=== PATIENT | female | born 1995 | race Caucasian/White ===

== ENCOUNTER 2017-10-28 10:24 | Outpatient (CLI) | payer MEDICAID, SELFPAY ==
[2017-10-28 10:44] VITALS: BP 165/99; PULSE 113; RESP 17; TEMP 36.9; O2SAT 98; BMI 43.9
[2017-10-28 11:05] VITALS: BP 165/99; PULSE 106; RESP 16; TEMP 36.9; O2SAT 98
[2017-10-28 11:25] LABS: Microscopic, Urine URINE MICROSCOPIC (MICROSCOPIC)
[2017-10-28 11:27] LABS: Appearance,Urine SL CLOUDY (Clear); Bilirubin,Urine Negative (Negative); Blood, Urine Negative (Negative); Color,Urine YELLOW (Yellow); Glucose,Urine (UA) Negative (Negative); Ketones,Urine Negative (Negative); Leukocyte Esterase,Urine Negative (Negative); Nitrate,Urine Negative (Negative); Protein,Urine 2+ (Negative); Specific Gravity, Urine >= 1.030 (1.005-1.030); Urobilinogen,Urine 0.2 EU/dl (0.2)
[2017-10-28 11:42] LABS: Bacteria,Urine 3+ /lpf; Calcium Oxalate Crystals,Urine 1+ /lpf; Mucus,Urine Trace /lpf; RBC,Urine Occasional #/hpf (0-3)
[2017-10-28 12:02] LABS: Basophils % 0.2 % (0.1-2.0); Eosinophils # 0.1 K/mm3 (0.0-0.4); Eosinophils % 0.9 % (0.1-12.0); Hematocrit 27.1 % (37.0-47.0); Hemoglobin 8.9 g/dL (12.2-16.2); Lymphocytes # 1.4 K/mm3 (0.7-4.5); Lymphocytes % 14.7 K/mm3 (10-50); Mean Corpuscular HGB Conc 32.9 g/dL (31.8-35.4); Mean Corpuscular Hemoglobin 25.7 pg (27.0-31.2); Mean Corpuscular Volume 78.2 fl (81-99); Mean Platelet Volume 11.4 fl (7.4-10.4); Monocytes # 0.6 K/mm3 (0.1-1.0); Monocytes % 5.7 % (1.7-9.3); Neutrophils # 7.6 K/mm3 (1.8-7.8); Neutrophils % 78.6 % (37.0-80.0); Platelet Count 140 K/mm3 (142-424); Red Blood Count 3.47 M/mm3 (4.20-5.40); Red Cell Distribution Width 15.6 % (11.5-17.5); White Blood Count 9.6 K/mm3 (4.8-10.8)
[2017-10-28 12:08] LABS: Alanine Aminotransferase 13 U/L (12-78); Anion Gap 12.9 mEq/L (5-15); Aspartate Amino Transferase 13 U/L (15-37); Blood Urea Nitrogen 8 mg/dL (7-18); Carbon Dioxide 22 mmol/L (21.0-32.0); Chloride 108 mmol/L (98-107); Creatinine Clearance Estimated 191 mL/min (0-300); Creatinine,Serum 0.47 mg/dL (0.55-1.02); Estimated Glomerular Filt Rate 167 ml/min (>60); GFR (African American) 202 ML/MIN (>60); Glucose 82 mg/dL (74-106); Potassium 3.9 mmoL/L (3.5-5.1); Sodium 139 mmol/L (136-145); Uric Acid 4.7 mg/dL (2.6-7.2)
--- NOTE | 2017-10-28 12:21 | PC.NURSE ---
Called Dr. Johnson, reported lab findinsgs Uric acid, plts, OK to discharge to home , start 24 hour urine , keep thursday f/u apt with Dr. King
[2017-10-28 12:28] LABS: D-Dimer 1700 (0-400)
[2017-10-28 12:49] LABS: Activated Partial Thrombo Time 25.5 seconds (23.6-34.0); Fibrinogen 374 mg/dL (204-500); INR 0.94 (0.9-1.1); Prothrombin Time 10.1 seconds (9.4-11.8)
== END 2017-10-28 12:45 | disposition home or self-care (01) ==
LOC: OBOUT 10:30 → OB 10:32
PROVIDERS: PCP Family Medicine; Visit Provider Nurse Practitioner Obstetrics & Gynecology
DX: O26.93 Pregnancy related conditions, unspecified, third trimester (principal); Z3A.34 34 weeks gestation of pregnancy; R51 Headache; Z34.90 Encounter for supervision of normal pregnancy, unspecified, unspecified trimester
CPT/HCPCS: 59025; 80048; 81001; 84450; 84460; 84550; 85025; 85378; 85384; 85610; 85730; 87086

== ENCOUNTER → 2017-10-29 17:28 | Outpatient (REF) | payer MEDICAID, SELFPAY ==
[2017-10-29 20:04] LABS: Total Protein,Urine Random 99.9 mg/dL (0.0-11.9)
[2017-10-29 21:35] LABS: Total Protein 24 Hour,Urine 949 mg/24 hr (40-90); Total Volume,Urine 950 mL (600-1600)
== END ==
LOC: LAB 17:28
PROVIDERS: Visit Provider Nurse Practitioner Obstetrics & Gynecology
DX: Z34.90 Encounter for supervision of normal pregnancy, unspecified, unspecified trimester (principal)
CPT/HCPCS: 84155

== ENCOUNTER 2017-10-30 11:16 | Observation (INO) | payer MEDICAID, SELFPAY ==
--- NOTE | 2017-10-30 | US_ITS ---
US OB biophysical profile, US SD Ratio umbilical artery, US OB biophysical profile, US SD Ratio umbilical artery: Indication: -induced hypertension ITS.REASON: PIH ORDERING PHYSICIAN: Toy King MD PATIENT AGE: 21 years FINDINGS: There was some technical issues in recording the data of the twin gestation. There is a twin gestation which is monochorionic monoamniotic. The placenta is anterior fundal and grade 2. The amniotic fluid index is 10. Visibly, the amniotic fluid volume appears low . Fetus A is cephalic and has a heart rate of 128 BPM. Average ultrasound age is 34 weeks 6 days of fetus a. Estimated due date is 12/05/2017. BPD 35 weeks 1 day, OFD 33 weeks 4 days, HC 33 weeks 6 days, abdominal circumference 34 weeks 4 days, FL 35 weeks 3 days. All parameters correlate. Estimated weight of fetus a is 2504 g which is 50th percentile. Biophysical profile parameters are not documented on the images due to technical difficulties but is reported as 8 of 8. The SD ratio pedis is 2.7 with a resistive index of 0.63. Fetus B is cephalic. heart tones are present with an FHR of 156 BPM. Average ultrasound age of fetus B is 33 weeks 3 days with estimated due date of 12/15/2017. Estimated weight is 2150 g is 14th percentile. BPD 33 weeks 2 days, OFD 35 weeks 0 days, HC 33 weeks 6 days, before meals 33 weeks 2 days, FL 33 weeks 2 days. All parameters correlate. SD ratio of fetus B is 2.3 with a resistive index of 0.56 biophysical profile fetus B is 8 of 8. IMPRESSION: Live twin gestation monochorionic and monoamniotic with anterior placenta grade 2. Amniotic fluid volume visibly appears low with an HAMILTON of 10. Average ultrasound age of fetus a is 34 weeks 6 days and average ultrasound fetus B is 33 weeks 3 days. Both fetuses are in cephalic position. Biophysical profile fetus a is not documented due to technical difficulties but is reported by technologist at 8 of 8. Biophysical profile fetus B is 8 of 8. Significant findings called to Dr. King on 10/30/2017 4:07 PM.
[2017-10-30 11:20] VITALS: BP 161/104; PULSE 95; RESP 20; TEMP 36.7; O2SAT 95; BMI 45.2
[2017-10-30 12:15] LABS: Basophils % 0.2 % (0.1-2.0); Eosinophils # 0.2 K/mm3 (0.0-0.4); Eosinophils % 1.5 % (0.1-12.0); Hemoglobin 9.2 g/dL (12.2-16.2); Lymphocytes % 17.3 K/mm3 (10-50); Mean Corpuscular HGB Conc 32.8 g/dL (31.8-35.4); Mean Corpuscular Hemoglobin 25.4 pg (27.0-31.2); Mean Corpuscular Volume 77.4 fl (81-99); Mean Platelet Volume 10.9 fl (7.4-10.4); Monocytes # 0.6 K/mm3 (0.1-1.0); Monocytes % 5.3 % (1.7-9.3); Neutrophils # 8.8 K/mm3 (1.8-7.8); Neutrophils % 75.6 % (37.0-80.0); Platelet Count 156 K/mm3 (142-424); Red Blood Count 3.61 M/mm3 (4.20-5.40); Red Cell Distribution Width 15.5 % (11.5-17.5); White Blood Count 11.6 K/mm3 (4.8-10.8)
[2017-10-30 12:21] LABS: Alanine Aminotransferase 13 U/L (12-78); Anion Gap 13.2 mEq/L (5-15); Aspartate Amino Transferase 14 U/L (15-37); Blood Urea Nitrogen 8 mg/dL (7-18); Carbon Dioxide 22 mmol/L (21.0-32.0); Chloride 108 mmol/L (98-107); Creatinine Clearance Estimated 176 mL/min (0-300); Creatinine,Serum 0.51 mg/dL (0.55-1.02); Estimated Glomerular Filt Rate 152 ml/min (>60); GFR (African American) 184 ML/MIN (>60); Glucose 86 mg/dL (74-106); Potassium 4.2 mmoL/L (3.5-5.1); Sodium 139 mmol/L (136-145)
[2017-10-30 12:44] LABS: D-Dimer 1430 (0-400)
[2017-10-30 12:53] LABS: Activated Partial Thrombo Time 25.2 seconds (23.6-34.0); Fibrinogen 429 mg/dL (204-500); INR 0.91 (0.9-1.1); Prothrombin Time 9.8 seconds (9.4-11.8)
[2017-10-30 14:20] LABS: Microscopic, Urine URINE MICROSCOPIC (MICROSCOPIC)
[2017-10-30 14:25] LABS: Appearance,Urine CLOUDY (Clear); Blood, Urine Negative (Negative); Color,Urine DK YELLOW (Yellow); Glucose,Urine (UA) Negative (Negative); Ketones,Urine TRACE (Negative); Leukocyte Esterase,Urine TRACE (Negative); Nitrate,Urine Negative (Negative); Protein,Urine 2+ (Negative); Specific Gravity, Urine >= 1.030 (1.005-1.030); Urobilinogen,Urine 0.2 EU/dl (0.2)
[2017-10-30 15:25] LABS: Bilirubin,Urine 1+ (Negative)
[2017-10-30 15:36] LABS: RBC,Urine Occasional #/hpf (0-3)
[2017-10-30 15:37] LABS: Amorphous Sediment,Urine 3+ /lpf; Bacteria,Urine 3+ /lpf
--- NOTE | 2017-10-30 16:23 | P.PN_ITS ---
Internal Medicine - PN: Subj *Date: 10/30/17 *Time: 16:19 (See if this works this 21-year-old primigravida white female was admitted earlier today at 34-2/7 weeks with mono/mono twins, breech/vertex, and signs and symptoms of preeclampsia with a blood pressure 162/102 and hyperreflexia. She also exhibited increased proteinuria and 4+ edema. She was treated with magnesium sulfate. Her current blood pressure is 143/99. She is not rajiv. However, her amniotic fluid index is quite low based on a biophysical profile, and the decision was made to transfer the patient to . He has been accepted by Dr. Pratima Link in transfer. She has received a course of steroids, approximately 2 weeks ago, and had a group B strep culture done just morning.) Exam Vital signs and Labs for Last 24 Hours: Temp Pulse Resp BP Pulse Ox 98.0 F 95 H 20 161/104 95 10/30/17 11:20 10/30/17 11:20 10/30/17 11:20 10/30/17 11:20 10/30/17 11:20 Laboratory Results - last 24 hr 10/30/17 11:55: WBC 11.6 H, RBC 3.61 L, Hgb 9.2 L, Hct 28.0 L, MCV 77.4 L, MCH 25.4 L, MCHC 32.8, RDW 15.5, Plt Count 156, MPV 10.9 H, Neut % (Auto) 75.6, Lymph % (Auto) 17.3, Hinds % (Auto) 5.3, Eos % (Auto) 1.5, Baso % (Auto) 0.2, Neut # (Auto) 8.8 H, Lymph # (Auto) 2.0, Hinds # (Auto) 0.6, Eos # (Auto) 0.2, Baso # (Auto) 0.0 10/30/17 11:55: PT 9.8, INR 0.91, APTT 25.2, Fibrinogen 429, D-Dimer 1430 H* 10/30/17 11:55: Sodium 139, Potassium 4.2, Chloride 108 H, Carbon Dioxide 22, Anion Gap 13.2, BUN 8, Creatinine 0.51 L, Estimated Creat Clear 176, Estimated GFR 152, Est GFR ( Amer) 184, Glucose 86, Uric Acid 5.0, AST 14 L, ALT 13 10/30/17 11:55: Urine Color Dk yellow, Urine Appearance Cloudy, Urine pH 6.0, Ur Specific Elsa >= 1.030, Urine Protein 2+, Urine Glucose (UA) Negative, Urine Ketones Trace, Urine Blood Negative, Urine Nitrate Negative, Urine Bilirubin 1+ A, Urine Urobilinogen 0.2, Ur Leukocyte Esterase Trace, Urine RBC Occasional, Urine WBC 5-10, Ur Squamous Epith Cells 5-10, Amorphous Sediment 3+ , Urine Bacteria 3+ 10/30/17 11:55: Blood Type A Positive, Antibody Screen Negative I & O for Last 24 hours: Intake & Output 10/28/17 10/29/17 10/30/17 10/31/17 11:59 11:59 11:59 11:59 Weight 297 lb 6 oz
--- NOTE | 2018-03-04 13:25 | HMH.DCSUM ---
General - General Admission date:: 10/30/17 Discharge date: 10/30/17 Hospital Course Hospital Course: This 22-year-old white female at 34+ weeks with known monochorionic monoamniotic twins was seen in labor and delivery for a biophysical profile which was felt to be substandard. She was then transferred to [facility] after discussion with Dr. Pratima Link, Chief of OB there. Objective Vital signs: Temp Pulse Resp BP Pulse Ox 98.0 F 95 H 20 161/104 95 10/30/17 11:20 10/30/17 11:20 10/30/17 11:20 10/30/17 11:20 10/30/17 11:20 Discharge Plan - Patient Discharge Instructions Additional Instructions: npo Patient Instructions: Pre-eclampsia and -induced Hypertension (Alternative Therapy) Forms: Transfer Record - Follow up Plan Disposition: Xfer Short-Term Hosp Home Medications: Home Medications Medication Instructions Recorded Confirmed Type albuterol sulfate HFA 90 1 puff INHALATION Q6H PRN 10/23/17 10/30/17 History mcg/actuation aerosol inhaler betamethasone sodium phosphate 3 1 tab PO NEEDED PRN 10/23/17 History mg/mL base (4 mg/mL) injection soln ferrous sulfate 325 mg (65 mg 325 mg PO TID tab 10/23/17 10/30/17 History iron) tablet ondansetron HCl 4 mg tablet 4 mg PO Q4H PRN 10/23/17 10/30/17 History 1 tab PO QDAY 10/23/17 10/30/17 History vitamin,calcium,khxfymhl-zqdn-tkjoa acid tablet Prescriptions/Medication Reconciliation: Continue ondansetron HCl 4 mg tablet 4 mg PO Q4H PRN PRN Reason: Nausea And Vomiting albuterol sulfate HFA 90 mcg/actuation aerosol inhaler 1 puff INHALATION Q6H PRN PRN Reason: ASTHMA/SHORTNESS OF BREATH vitamin,calcium,zjdqxass-utcl-zuxgu acid tablet 1 tab PO QDAY ferrous sulfate 325 mg (65 mg iron) tablet 325 mg PO TID tab No Action betamethasone sodium phosphate 3 mg/mL base (4 mg/mL) injection soln 1 tab PO NEEDED PRN PRN Reason: other
--- NOTE | 2018-03-04 13:28 | P.DS_ITS ---
General - General Admission date:: 10/30/17 Discharge date: 10/30/17 Hospital Course Hospital Course: This 22-year-old white female at 34+ weeks with known monochorionic monoamniotic twins was seen in labor and delivery for a biophysical profile which was felt to be substandard. She was then transferred to [facility] after discussion with Dr. Pratima Link, Chief of OB there. Objective Vital signs: Temp Pulse Resp BP Pulse Ox 98.0 F 95 H 20 161/104 95 10/30/17 11:20 10/30/17 11:20 10/30/17 11:20 10/30/17 11:20 10/30/17 11:20 Discharge Plan - Patient Discharge Instructions Additional Instructions: npo Patient Instructions: Pre-eclampsia and -induced Hypertension ( Alternative Therapy) Forms: Transfer Record - Follow up Plan Disposition: Xfer Short-Term Hosp Home Medications: Home Medications Medication Instructions Recorded Confirmed Type albuterol sulfate HFA 90 1 puff INHALATION Q6H PRN 10/23/17 10/30/17 History mcg/actuation aerosol inhaler betamethasone sodium phosphate 3 1 tab PO NEEDED PRN 10/23/17 History mg/mL base (4 mg/mL) injection soln ferrous sulfate 325 mg (65 mg 325 mg PO TID tab 10/23/17 10/30/17 History iron) tablet ondansetron HCl 4 mg tablet 4 mg PO Q4H PRN 10/23/17 10/30/17 History 1 tab PO QDAY 10/23/17 10/30/17 History vitamin,calcium,yvhubpus-ckow-rlydw acid tablet Prescriptions/Medication Reconciliation: Continue ondansetron HCl 4 mg tablet 4 mg PO Q4H PRN PRN Reason: Nausea And Vomiting albuterol sulfate HFA 90 mcg/actuation aerosol inhaler 1 puff INHALATION Q6H PRN PRN Reason: ASTHMA/SHORTNESS OF BREATH vitamin,calcium,aptxwpwv-ezbi-zhmco acid tablet 1 tab PO QDAY ferrous sulfate 325 mg (65 mg iron) tablet 325 mg PO TID tab No Action betamethasone sodium phosphate 3 mg/mL base (4 mg/mL) injection soln 1 tab PO NEEDED PRN PRN Reason: other
== END 2017-10-30 22:00 | disposition short-term general hospital (02) ==
PROVIDERS: Admitting Provider Obstetrics & Gynecology; PCP Family Medicine; Visit Provider Obstetrics & Gynecology
DX: O16.3 Unspecified maternal hypertension, third trimester (principal); O30.013 Twin pregnancy, monochorionic/monoamniotic, third trimester; Z3A.34 34 weeks gestation of pregnancy
CPT/HCPCS: 59025; 76801; 76802; 76819; 76820; 80048; 81001; 84450; 84460; 84550; 85025; 85378; 85384; 85610; 85730; 86850; 87086; G0378

== ENCOUNTER → 2017-10-30 13:45 | Outpatient (REF) | payer MEDICAID, SELFPAY | LOC: LAB 13:45 | PROVIDERS: Visit Provider Obstetrics & Gynecology | DX: Z34.90 Encounter for supervision of normal pregnancy, unspecified, unspecified trimester (principal) | CPT/HCPCS: 86403 ==

== ENCOUNTER → 2018-06-22 08:29 | Outpatient (CLI) | payer MEDICAID, SELFPAY ==
--- NOTE | 2018-06-22 08:32 | CT_ITS ---
Are CT abdomen pelvis wo/w con CLINICAL INDICATION: Right lower quadrant pain close to incision, possible hernia ITS.REASON: incisional pain ORDERING PHYSICIAN: Toy King MD PATIENT AGE: 22 years COMPARISON: 06/03/2016 TECHNIQUE: Axial images obtained without and with contrast with sagittal and coronal reformats. All CT scans at the facility use one or more dose reduction, viz: automated exposure control, ma/kV adjustment per patient size (including targeted exams where dose is matched to indication, i.e. head), or iterative reconstruction technique. PROCEDURE: Oral Contrast: None IV Contrast: 75 mL [id number]. FINDINGS: Lung bases are clear. A vague isodensity is once again noted involving the right hepatic lobe posteriorly at 10 mm not significantly changed and may represent small hemangioma. Remaining liver is unremarkable. No radio opaque gallstones. The spleen, adrenal glands, pancreas, and kidneys have an unremarkable appearance. No renal or ureteral calculi. No hydronephrosis. The appendix is retrocecal and is upper limits of normal in size and 6 to 7 mm similar to the previous exam. No convincing evidence of appendicitis. There is a small amount of fluid in the pelvis nonspecific. No intestinal obstruction or free air. No focal inflammatory change or pelvic mass evident. There is a tiny umbilical hernia containing fat. No other abdominal wall hernias are evident. There is minimal stranding of the abdomen in the intra-abdominal wall which may be due to patient's scar. No evidence of hernia at this region. There is acute anterior angulation of the tip of the coccyx similar to the previous exam and may be related to old injury. No other bony anomalies evident. IMPRESSION: 1. No acute abdominal or pelvic findings. 2. No change isodensity of the right hepatic lobe which may represent small hemangioma. 3. There is a tiny umbilical hernia containing fat. No other abdominal wall hernias are evident.
== END ==
PROVIDERS: PCP Family Medicine; Visit Provider Obstetrics & Gynecology
DX: L76.82 Other postprocedural complications of skin and subcutaneous tissue (principal)
CPT/HCPCS: 74170; Q9967

== ENCOUNTER → 2019-02-24 07:55 | Outpatient (POV) | payer MEDICAID, SELFPAY | PROVIDERS: PCP Family Medicine; Visit Provider Dentist | DX: Z00.00 Encounter for general adult medical examination without abnormal findings (principal) ==

== ENCOUNTER → 2020-11-03 10:25 | Outpatient (CLI) | payer OTHER, SELFPAY ==
[2020-11-03 12:43] LABS: Glucose 1 Hour 141 mg/dL (74-100); Glucose,Fasting 129 mg/dl (74-100)
== END ==
PROVIDERS: Visit Provider Obstetrics & Gynecology
DX: Z34.90 Encounter for supervision of normal pregnancy, unspecified, unspecified trimester (principal)
CPT/HCPCS: 36415; 82951

== ENCOUNTER → 2020-11-16 09:37 | Outpatient (CLI) | payer OTHER, SELFPAY | PROVIDERS: Visit Provider Obstetrics & Gynecology | DX: Z34.90 Encounter for supervision of normal pregnancy, unspecified, unspecified trimester (principal) | CPT/HCPCS: 36415 ==

== ENCOUNTER → 2021-01-17 17:10 | Outpatient (CLI) | payer OTHER, SELFPAY | PROVIDERS: Visit Provider Obstetrics & Gynecology | DX: Z34.90 Encounter for supervision of normal pregnancy, unspecified, unspecified trimester (principal) | CPT/HCPCS: 86403 ==

== ENCOUNTER 2021-01-20 20:42 | Outpatient (CLI) | payer OTHER, SELFPAY ==
[2021-01-20 20:54] VITALS: BMI 43.2
[2021-01-20 20:58] VITALS: BP 131/91; PULSE 114; RESP 18; TEMP 36.8; O2SAT 98; BMI 43.2
[2021-01-20 21:09] LABS: Microscopic, Urine URINE MICROSCOPIC (MICROSCOPIC)
[2021-01-20 21:10] LABS: Appearance,Urine CLOUDY (Clear); Blood, Urine Negative (Negative); Color,Urine YELLOW (Yellow); Glucose,Urine (UA) Negative (Negative); Ketones,Urine TRACE (Negative); Leukocyte Esterase,Urine TRACE (Negative); Nitrate,Urine Negative (Negative); Protein,Urine TRACE (Negative); Specific Gravity, Urine >= 1.030 (1.005-1.030)
[2021-01-20 21:21] LABS: Barbiturates Screen,Urine Negative ng/ml (<200)
[2021-01-20 21:22] LABS: Amphetamine/Metha Screen,Urine Negative ng/ml (<1000); Benzodiazepines Screen,Urine Negative ng/ml (<200)
[2021-01-20 21:23] LABS: Cannabinoid Screen,Urine Negative ng/ml (<50)
[2021-01-20 21:24] LABS: Cocaine Screen,Urine Negative ng/ml (<300); Methadone Screen,Urine Negative ng/ml (<300)
[2021-01-20 21:25] LABS: Opiate Screen,Urine Negative ng/ml (<300)
[2021-01-20 21:26] LABS: Phencyclidine Screen,Urine Negative ng/ml (<25)
[2021-01-20 21:27] LABS: Bilirubin,Urine 1+ (Negative)
[2021-01-20 21:28] LABS: Amorphous Sediment,Urine Trace /lpf; Mucus,Urine 2+ /lpf; Squamous Epithelial Cell,Urine 50-100 #/hpf (0-5)
== END 2021-01-20 22:00 | disposition home or self-care (01) ==
LOC: OBOUT 20:45 → OB 20:49
PROVIDERS: PCP Obstetrics & Gynecology; Visit Provider Nurse Practitioner Obstetrics & Gynecology
DX: O60.03 Preterm labor without delivery, third trimester (principal); Z3A.37 37 weeks gestation of pregnancy
CPT/HCPCS: 59025; 80305; 81001; 96360; 96365; G0463

== ENCOUNTER → 2021-01-27 16:07 | Outpatient (CLI) | payer OTHER, SELFPAY ==
[2021-01-27 16:49] LABS: Basophils % 0.1 % (0.1-2.0); Eosinophils % 0.4 % (0.1-12.0); Hematocrit 30.9 % (37.0-47.0); Hemoglobin 10.5 g/dL (12.2-16.2); Lymphocytes # 1.7 K/mm3 (0.7-4.5); Lymphocytes % 16.1 % (10-50); Mean Corpuscular HGB Conc 33.9 g/dL (31.8-35.4); Mean Corpuscular Hemoglobin 26.4 pg (27.0-31.2); Mean Corpuscular Volume 77.7 fl (81-99); Mean Platelet Volume 10.1 fl (7.4-10.4); Monocytes # 0.5 K/mm3 (0.1-1.0); Neutrophils # 8.5 K/mm3 (1.8-7.8); Neutrophils % 78.5 % (37.0-80.0); Platelet Count 212 K/mm3 (142-424); Red Blood Count 3.98 M/mm3 (4.20-5.40); Red Cell Distribution Width 15.1 % (11.5-17.5); White Blood Count 10.9 K/mm3 (4.8-10.8)
[2021-01-27 17:12] LABS: Blood Urea Nitrogen 9 mg/dl (7-17); Calcium 8.6 mg/dl (8.4-10.2); Carbon Dioxide 19 mmol/L (22.0-30.0); Chloride 109 mmol/L (98-107); Estimated Glomerular Filt Rate 194 ml/min (>60); GFR (African American) 235 ML/MIN (>60); Glucose 107 mg/dl (74-100); Sodium 135 mmol/L (136-145)
== END ==
PROVIDERS: PCP Obstetrics & Gynecology; Visit Provider Obstetrics & Gynecology
DX: Z34.90 Encounter for supervision of normal pregnancy, unspecified, unspecified trimester (principal)
CPT/HCPCS: 36415; 80048; 85025; 86850; U0003

== ENCOUNTER 2021-01-28 05:19 | Inpatient (IN) | payer OTHER, SELFPAY ==
--- NOTE | 2021-01-23 10:23 | SUR.PREOP ---
CAlled pt instructed her to come in Thursday for COVID swab
[2021-01-28] VITALS (20 sets, daily range): BP systolic 101–142; BP diastolic 59–83; PULSE 73–113; RESP 12–20; TEMP 36.2–37.2; O2SAT 95–100; BMI 43.2
[2021-01-28 05:43] LABS: Microscopic, Urine URINE MICROSCOPIC (MICROSCOPIC)
[2021-01-28 05:47] LABS: Appearance,Urine CLOUDY (Clear); Blood, Urine Negative (Negative); Color,Urine YELLOW (Yellow); Glucose,Urine (UA) Negative (Negative); Ketones,Urine Negative (Negative); Leukocyte Esterase,Urine 1+ (Negative); Nitrate,Urine Negative (Negative); Protein,Urine TRACE (Negative); Specific Gravity, Urine >= 1.030 (1.005-1.030)
[2021-01-28 05:49] LABS: Bilirubin,Urine Negative (Negative)
[2021-01-28 05:54] LABS: WBC,Urine 20-50 #/hpf (0-3)
[2021-01-28 05:55] LABS: Bacteria,Urine 3+ /lpf; Squamous Epithelial Cell,Urine TNTC #/hpf (0-5)
[2021-01-28 06:00] LABS: Barbiturates Screen,Urine Negative ng/ml (<200)
[2021-01-28 06:01] LABS: Amphetamine/Metha Screen,Urine Negative ng/ml (<1000); Benzodiazepines Screen,Urine Negative ng/ml (<200)
[2021-01-28 06:02] LABS: Cannabinoid Screen,Urine Negative ng/ml (<50); Cocaine Screen,Urine Negative ng/ml (<300)
[2021-01-28 06:03] LABS: Methadone Screen,Urine Negative ng/ml (<300)
[2021-01-28 06:04] LABS: Opiate Screen,Urine Negative ng/ml (<300); Phencyclidine Screen,Urine Negative ng/ml (<25)
--- NOTE | 2021-01-28 07:09 | P.PN_ITS ---
[facility] Anesthesia Checklist - Patient Identification Patient Identification: Arm Band - Structural Data Admitted From: Inpatient Planned Operative Procedure/s: Repeat C/S Consent for Planned Operative Procedure(s) Verified: Yes Verified Documents: Surgical Consent, History and Physical - NPO Status Verified Time NPO: 00:00 - Additional verifications Anesthesia Reactions: No - Airway Assessment C-Spine Mobility Assessed: Yes TMJ Mobility Assessed: Yes Dentition: Good Dentition - Neurological Assessment Level of Consciousness: Awake, Alert - Anesthesia Plan Anesthesia Risk discussed: Yes Anesthesia Plan: Verified ASA Class: II Anesthesia Type: Spinal [facility] History I have reviewed the patient's past medical history: Yes Medical History: Denies:: Cancer, Diabetes Mellitus Type 1, Diabetes Mellitus Type 2, MRSA *Have you ever received a pneumonia vaccine?: No *Have you received a flu vaccine this season?: Yes () Other Medical History: Reports: Other Anesthesia experience/problems:: nac Laterality Cases: Bilateral: Tonsillectomy Other Surgeries: Yes: Amputation: No Fractures: No - *Social History Smoking Status: Never smoker Alcohol Intake: never Substance Use Type: denies use *Occupational Status:: unemployed Housing: apartment Household Members: significant other *Travel in the last 8 weeks: None Family Hx:: No significant family history, Hypertension [employer]INE [employer] history: Non-contributory Para: 1
--- NOTE | 2021-01-28 07:38 | HMH.OBAPHP ---
OB - H&P: HPI Antepartum - History of Present Illness Chief complaint: elective repeat c section History of present illness: Admitted at 39 weeks for elective repeat CS and tubal ligation complicated by circumvellate placenta and mild anemia history of previous c section with twin declines TOLAC and desires permanent sterilization with tubal ligation [facility] History I have reviewed the patient's past medical history: Yes Medical History: Denies:: Cancer, Diabetes Mellitus Type 1, Diabetes Mellitus Type 2, MRSA *Have you ever received a pneumonia vaccine?: No *Have you received a flu vaccine this season?: Yes () Other Medical History: Reports: Other Anesthesia experience/problems:: nac Laterality Cases: Bilateral: Tonsillectomy Other Surgeries: Yes: No Previous Surgery, Amputation: No Fractures: No - *Social History Smoking Status: Never smoker Alcohol Intake: never Substance Use Type: denies use *Occupational Status:: unemployed Housing: apartment Household Members: significant other *Travel in the last 8 weeks: None Family Hx:: No significant family history, Hypertension [employer] history: Non-contributory Para: 1 Review of Systems - Review of Systems Review of systems:: pertinent systems reviewed and negative unless documented below - Constitutional Denies chills, Denies fever(s) - *Respiratory Denies cough - *Genitourinary Denies abnormal vaginal bleeding Meds Home Medications Medication Instructions Recorded Confirmed Type prenat.vits,ana,pst-vhnw-yzbht 1 tab PO DAILY 10/09/20 01/28/21 History Allergies Allergy/AdvReac Type Severity Reaction Status Date / Time No Known Allergies Allergy Verified 01/17/21 11:34 OB - H&P: Exam - Physical Exam Vital signs: Temp Pulse Resp BP Pulse Ox 98.2 F 97 H 18 142/76 H 98 01/28/21 06:04 01/28/21 06:04 01/28/21 06:04 01/28/21 06:04 01/28/21 06:04 - Constitutional no acute distress - Routine HEENT Exam Head: Present: normocephalic, atraumatic Eye: Absent: conjunctival icterus ENT: Present: mucous membranes moist - Routine Neck Exam Present: supple - Routine Chest/Breast/Axilla Exam Chest wall: Absent: tenderness - Routine Respiratory Exam Present: CTA bilaterally - Routine Cardiovascular Exam Present: RRR - Routine Abdominal Exam Present: soft. Absent: tenderness, distended - Routine Exam Comments: cervix closed - Routine Extremities Exam Present: edema - Routine Back/Spine/Pelvis Exam Back/Spine: Absent: CVA tenderness - Routine Skin Exam Absent: rash - Routine Neurological Exam Present: alert, oriented X3 OB - Results - Labs Labs: Urine 01/28/21 Range/Units 05:30 Urine Color Yellow (Yellow) Urine Appearance Cloudy (Clear) Urine pH 6.0 (5.0-8.5) Ur Specific [place] >= 1.030 (1.005-1.030) Urine Protein Trace (Negative) Urine Glucose (UA) Negative (Negative) OB - A/P Antepartum (1) 39 weeks gestation of Status: Acute (2) Circumvallate placenta Status: Acute (3) Anemia complicating Status: Acute (4) Previous section Status: Acute (5) tubal ligation planned Status: Acute - Additional Plan Additional Information:: Elective repeat C Section with tubal ligation PNV with FeSO4
--- NOTE | 2021-01-28 08:57 | HMH.ANESI ---
[facility] Anesthesia Record Part I Intake, IV Amount: 2,500 Estimated blood loss (mL): 600 Urine output (mL): 250 Blood Pressure: 113/64 SaO2: 97 Pulse Rate: 101 Respiratory Rate: 12 Temperature: 97.8 F Patient is:: Awake, Stable Stable to PACU at:: 08:55
--- NOTE | 2021-01-28 09:22 | HMH.OPNOTE ---
Date of procedure: 01/28/21 Pre-op Diagnosis:: 1. 39 weeks gestation 2. Previous C Section 3. Undesired fertility Post-op Diagnosis:: Same Procedure performed:: 1. Low Transverse C Section 2. Bilateral tubal ligation Surgeon:: Vivi Cordero MD Risk Reduction Counselor(s):: Clau Arreaga CASE RESOLUTION SPECIALIST:: Nigel Mercado Anesthesia: spinal Estimated blood loss (mL): 600 Operative findings:: Grossly normal uterus, fallopian tubes and ovaries Vigorous liveborn female Nuchal cord x 2 Operative note:: The patient was taken to the OR and spinal was administered without difficulty. She was prepped and draped in normal sterile fashion. A pfannenstiel skin incision was made with the scalpel and carried down to the fascia. The fascia was incised in the midline and sharply dissected off the rectus muscles. The muscles were in the midline and the peritoneum was entered sharply and extended bluntly. The Pierce-O self retaining retractor was placed in the abdomen and a bladder flap was created. The uterus was incised in the lower uterine segment in a transverse fashion and extended bluntly. Amniotomy was performed and clear fluid noted. The infant was delivered in controlled fashion, without complication or shoulder dystocia. The infant was vigorous at and handed to awaiting pediatricians for evaluation after cord clamped and cut. Cord blood was collected and a cord segment was preserved. The placenta was manually extracted and noted to be intact. The uterus was repaired with 0-vicryl in a running/locked fashion. Bilateral fallopian tube segments were excised using the Enseal, with excellent hemostasis. The peritoneum was closed with 2-0 vicryl in a running fashion. The fascia was closed with #1 vicryl in a running fashion. The subcutaneous fat was closed with 2-0 vicryl in an interrupted fashion. The skin was closed with richard. The patient tolerated the procedure well. Sponge, lap, needle and instrument counts were correct x 2. She was taken to PACU awake and in stable condition. Condition: stable Disposition: PACU Specimens:: Fallopian tube segments Complications:: none
--- NOTE | 2021-01-28 10:41 | SUR.OPER ---
viable female time of 0808
[2021-01-29 00:15] VITALS: BP 118/68; PULSE 97; RESP 17; TEMP 36.9; O2SAT 99
[2021-01-29 04:00] VITALS: BP 110/61; PULSE 106; RESP 18; TEMP 37; O2SAT 99
[2021-01-29 07:02] LABS: Hemoglobin 8.4 g/dL (12.2-16.2)
[2021-01-29 11:15] VITALS: BP 136/65; PULSE 88; TEMP 36.5
--- NOTE | 2021-01-29 11:15 | P.PN_ITS ---
[facility] Anesthesia Record Part II Discharge Time: 09:25 Destination: Obstetric PACU nurse assessment reviewed?: Yes Patient Condition:: Good Anesthesia Complications:: None Swallowing reflex intact?: Yes Cyanosis?: No Blood Pressure: 136/65 Pulse Rate: 88 Temperature: 97.7 F Mental Status: Alert & Oriented Pain level:: 2 Nausea and/or vomitting:: None Intake, IV Amount: 0
--- NOTE | 2021-01-29 11:33 | P.PN_ITS ---
Internal Medicine - PN: Subj *Date: 01/29/21 *Time: 11:33 Interval history: POD #1 repeat CS with BTL Tolerating regular diet Ambulating and voiding without difficulty Lochia appropriate and pain control sufficient somewhat tearful this morning regarding inter-personal issues with FOB, but mega es depression symptoms Exam Vital signs and Labs for Last 24 Hours: Temp Pulse Resp BP Pulse Ox 97.7 F 88 18 136/65 99 01/29/21 11:15 01/29/21 11:15 01/29/21 04:00 01/29/21 11:15 01/29/21 04:00 Laboratory Results - last 24 hr 01/29/21 06:38: Hgb 8.4 L, Hct 26.0 L I & O for Last 24 hours: Intake & Output 01/26/21 01/27/21 01/28/21 01/29/21 11:59 11:59 11:59 11:59 Intake Total 2520 / 2520 0 / 0 Output Total 65 / 65 400 / 400 Balance 2455 / 2455 -400 / -400 Weight 284 lb Microbiology Reports for the Last 24 Hours: Microbiology 01/28/21 08:00 Urine,Catheterized Urine Culture - Preliminary NO GROWTH AFTER 24 HOURS 01/28/21 05:30 Urine,Clean Catch Urine Culture - Preliminary Narrative: CONSTITUTIONAL: no acute distress HEENT: mucous membranes moist PULMONARY: breathing unlabored without audible wheezes CV: no tachycardia or visible JVD; normal LE peripheral pulses ABD: soft, ND; appropriately tender but no rebound/guarding : fundus firm at/below umbilicus SKIN: incision well approximated with no drainage, erythema or induration EXT: 1+ edema LEs NEURO: alert/oriented, no altered mental status PSYCH: appropriate mood and demeanor with occasional tearfulness Assessment and Plan (1) 39 weeks gestation of Status: Acute Category: Medical Code(s): Z3A.39 - 39 weeks gestation of (2) Circumvallate placenta Status: Acute Category: Medical Code(s): O43.119 - Circumvallate placenta, unspecified trimester (3) Anemia complicating Status: Acute Category: Medical Code(s): O99.019 - Anemia complicating , unspecified trimester (4) Previous section Status: Acute Category: Surgical Code(s): Z98.891 - History of uterine scar from previous surgery (5) tubal ligation planned Status: Acute Category: Medical - Assessment and plan all Dx Assessment and Plan for all problems:: Routine postop care PNV with FeSO4 Continue to monitor for depression
[2021-01-29 19:25] VITALS: BP 121/78; PULSE 105; RESP 18; TEMP 36.9; O2SAT 100
[2021-01-30 04:20] VITALS: BP 121/77; PULSE 105; RESP 17; TEMP 36.9; O2SAT 100
[2021-01-30 08:30] VITALS: BP 104/67; PULSE 104; RESP 20; TEMP 37; O2SAT 98
--- NOTE | 2021-01-30 11:41 | HMH.ACPN2 ---
Internal Medicine - PN: Subj *Date: 01/30/21 *Time: 11:41 Interval history: POD #2 repeat LTCS with BTL no unusual complaints ambulating and voiding without difficulty tolerating regular diet asymptomatic with ygftb-kx-chufhpn anemia Exam Vital signs and Labs for Last 24 Hours: Temp Pulse Resp BP Pulse Ox 98.6 F 104 H 20 104/67 L 98 01/30/21 08:30 01/30/21 08:30 01/30/21 08:30 01/30/21 08:30 01/30/21 08:30 I & O for Last 24 hours: Intake & Output 01/27/21 01/28/21 01/29/21 01/30/21 11:59 11:59 11:59 11:59 Intake Total 2520 / 2520 0 / 0 Output Total 65 / 65 400 / 400 Balance 2455 / 2455 -400 / -400 Weight 284 lb Microbiology Reports for the Last 24 Hours: Microbiology 01/28/21 08:00 Urine,Catheterized Urine Culture - Final NO GROWTH AFTER 48 HOURS Narrative: CONSTITUTIONAL: no acute distress HEENT: mucous membranes moist PULMONARY: breathing unlabored without audible wheezes CV: no tachycardia or visible JVD; normal LE peripheral pulses ABD: soft, ND; appropriately tender but no rebound/guarding : fundus firm at/below umbilicus SKIN: incision well approximated with no drainage, erythema or induration EXT: 1+ edema LEs NEURO: alert/oriented, no altered mental status PSYCH: appropriate mood and demeanor without anxiety/depression Assessment and Plan (1) 39 weeks gestation of Status: Acute Category: Medical Code(s): Z3A.39 - 39 weeks gestation of (2) Circumvallate placenta Status: Acute Category: Medical Code(s): O43.119 - Circumvallate placenta, unspecified trimester (3) Maternal care for known or suspected placental insufficiency, third trimester, fetus 1 Status: Acute Category: Medical Code(s): O36.5131 - Maternal care for known or suspected placental insufficiency, third trimester, fetus 1 (4) Anemia complicating Status: Acute Category: Medical Code(s): O99.019 - Anemia complicating , unspecified trimester (5) Previous section Status: Acute Category: Surgical Code(s): Z98.891 - History of uterine scar from previous surgery (6) tubal ligation planned Status: Acute Category: Medical (7) Anemia associated with acute blood loss Status: Acute Category: Medical Code(s): D62 - Acute posthemorrhagic anemia - Assessment and plan all Dx Assessment and Plan for all problems:: Stable course continue PNV and FeSO4 Plan for discharge home tomorrow
--- NOTE | 2021-01-30 13:52 | P.CONPHA_ITS ---
[facility] Pharmacy VTE Monitoring - Patient Demographics Admission date: 01/28/21 Report Date: 01/30/21 Time: 13:52 Allergies/Adverse Reactions: Patient Allergies No Known Allergies Allergy (Verified 01/17/21 11:34) Height: 1.73 m Weight: 128.82 kg Patient Problems: Current Active Problems Maternal care for known or suspected placental insufficiency, third trimester, fetus 1 (Acute) Anemia associated with acute blood loss (Acute) Anemia complicating (Acute) 39 weeks gestation of (Acute) Circumvallate placenta (Acute) tubal ligation planned (Acute) Previous section (Acute) - VTE Risk Labs: VTE Related Lab Results Hgb 8.4 g/dL (12.2-16.2) L 01/29/21 06:38 Hct 26.0 % (37.0-47.0) L 01/29/21 06:38 - Prophylaxis VTE Prophylaxis Ordered?: Yes Types of VTE Prophylaxis: IPCS Thigh High Location of Applied Device: Bilateral Lower Extremeties
[2021-01-31 04:35] VITALS: BP 114/75; PULSE 114; RESP 18; TEMP 37; O2SAT 100
[2021-01-31 07:58] VITALS: BP 113/58; PULSE 98; RESP 20; TEMP 36.8; O2SAT 95
--- NOTE | 2021-01-31 10:35 | HMH.DCSUM ---
General - General Admission date:: 01/28/21 Discharge date: 01/31/21 HPI HPI: Repeat CS with BTL Procedure performed at 38 wks because of concern for insufficient placental perfusion with circumvellate placenta Postop course uneventful Tolerating regular diet, ambulating and voiding without difficulty Lochia appropriate Hospital Course Rhogam Administration: Not Indicated Objective Vital signs: Temp Pulse Resp BP Pulse Ox 98.2 F 98 H 20 113/58 L 95 01/31/21 07:58 01/31/21 07:58 01/31/21 07:58 01/31/21 07:58 01/31/21 07:58 Narrative: CONSTITUTIONAL: no acute distress HEENT: mucous membranes moist PULMONARY: breathing unlabored without audible wheezes CV: no tachycardia or visible JVD; normal LE peripheral pulses ABD: soft, ND; appropriately tender but no rebound/guarding : fundus firm at/below umbilicus SKIN: incision well approximated with no drainage, erythema or induration EXT: 1+ edema LEs NEURO: alert/oriented, no altered mental status PSYCH: appropriate mood and demeanor DS: Diagnosis - Discharge Diagnosis (1) 39 weeks gestation of Status: Acute (2) Circumvallate placenta Status: Acute (3) Maternal care for known or suspected placental insufficiency, third trimester, fetus 1 Status: Acute (4) Anemia complicating Status: Acute (5) Previous section Status: Acute (6) tubal ligation planned Status: Acute (7) Anemia associated with acute blood loss Status: Acute Discharge Plan - Patient Discharge Instructions ACTIVITY: Continue current activity DIET: regular diet Additional Instructions: Nothing in the vagina for 6 weeks No driving/heavy lifting Drink plenty of fluids Patient Instructions: How to Care for a Surgical Wound, Depression, Hemorrhage, DI for , DI for Pre-eclampsia, Surgical Site Infection, DI for Postoperative Pain, How to Care for a Surgical Wound-Jessica, [facility] Post Discharge Instructions, Preventing the Spread of Coronavirus Discharge Instructions - Follow up Plan Follow up with: Vivi Cordero MD [Primary Care Provider] - 02/15/21 10:30 am Disposition: Home, Self-Intermediate Medications: Home Medications Medication Instructions Recorded Confirmed Type prenat.vits,ana,zfo-xgpz-[id number] 1 tab PO DAILY 10/09/20 01/28/21 History Ibuprofen [Motrin 400mg 800 mg PO Q6HP PRN #40 tab 01/31/21 Rx tablet] Oxycodone HCl [OxyIR 5mg tablet] 5 mg PO Q4HP PRN #24 tablet 01/31/21 Rx Prescriptions/Medication Reconciliation: New Ferrous Sulfate [Ferrous Sulfate 325mg Tablet] 325 mg PO BID tablet Ibuprofen [Motrin 400mg tablet] 800 mg PO Q6HP PRN #40 tab PRN Reason: Mild To Moderate Pain Acetaminophen [Acetaminophen 325mg tab] 650 mg PO Q4HP PRN tablet PRN Reason: Mild Pain Oxycodone HCl [OxyIR 5mg tablet] 5 mg PO Q4HP PRN #24 tablet PRN Reason: Moderate Pain Continued prenat.vits,ana,vyd-disj-tzjlv 1 tab PO DAILY - Problem Reconciliation Problems Reviewed?: Yes
== END 2021-01-31 12:00 | disposition home or self-care (01) | DRG 785 ==
PROVIDERS: Admitting Provider Obstetrics & Gynecology; PCP Obstetrics & Gynecology; Visit Provider Obstetrics & Gynecology
PROC: 0UL70ZZ Occlusion of Bilateral Fallopian Tubes, Open Approach (ICD-10-PCS; CPT 59514; principal; 2021-01-28 07:30)
DX: O43.113 Circumvallate placenta, third trimester (principal); O99.02 Anemia complicating childbirth; Z30.2 Encounter for sterilization; O34.211 Maternal care for low transverse scar from previous cesarean delivery; N85.8 Other specified noninflammatory disorders of uterus; Z3A.38 38 weeks gestation of pregnancy; Z37.0 Single live birth; D64.9 Anemia, unspecified; O69.81X0 Labor and delivery complicated by cord around neck, without compression, not applicable or unspecified; O36.5130 Maternal care for known or suspected placental insufficiency, third trimester, not applicable or unspecified
CPT/HCPCS: 59514; 58611; 36415; 59025; 80048; 80305; 81001; 85014; 85018; 85025; 86850; 87086; 88302; 94761; G0283; U0003

== ENCOUNTER → 2021-07-22 10:08 | Outpatient (CLI) | payer OTHER, SELFPAY ==
--- NOTE | 2021-07-22 10:17 | XR_ITS ---
PROCEDURE: XR FOOT WT BEARING RT 3V CLINICAL INDICATION: 5th met fracture COMPARISON: CR FTL3 FOOT-LT-3 VIEWS from 07/15/2017 FINDINGS: There is a mildly displaced fracture involving the distal shaft of the 5th metatarsal. There is medial displacement of the distal fracture fragment by 4 mm. Bandage artifact is present. There is a small butterfly fragment along the inferior margin of the fracture. The joint spaces are well-preserved. No significant degenerative/arthritic changes. No erosive changes evident. Other findings:There may be an additional bony fragment at the tip of the fibula versus overlying artifact. Please correlate with patient's physical exam. IMPRESSION: Mildly displaced fracture distal shaft of right 5th metatarsal Possible avulsion fracture of the tip of the lateral malleolus Dictated by: Palomo Coker MD 07/22/2021 18:11 Palomo Coker MD in [place] 07/22/2021 18:11
== END ==
PROVIDERS: PCP Family Medicine; Visit Provider Podiatrist
DX: S92.351A Displaced fracture of fifth metatarsal bone, right foot, initial encounter for closed fracture (principal)
CPT/HCPCS: 73630

== ENCOUNTER → 2021-07-23 12:31 | Outpatient (CLI) | payer OTHER, SELFPAY ==
--- NOTE | 2021-07-23 12:31 | MR_ITS ---
PROCEDURE INFORMATION: Exam: MR Right Lower Extremity Joint Without Contrast; Ankle Exam date and time: 07/23/2021 12:31 PM Age: 25 years old Clinical indication: Pain; Ankle and foot; Right; Patient HX: PT fell down stairs x3days ago. Foot and ankle swelling. Exam was suppose to be done with contrast but patient refused contrast. Prior x-ray 07-22-21; Additional info: Right ankle injury TECHNIQUE: Imaging protocol: MR of the Right lower extremity without contrast. Exam focused on the ankle. COMPARISON: CR XR FOOT WT BEARING RT 3V 07/22/2021 10:20 AM FINDINGS: Bones and cartilage: A benign bone island is incidentally noted. Mild bone marrow edema involving the medial malleolus suggests a contusion. A healing fracture involving the distal fifth metatarsal diaphysis is in unchanged alignment. Joint spaces: Mild effusions involve the ankle and subtalar joints. LIGAMENTS: Distal tibiofibular syndesmosis: The anterior inferior tibiofibular ligament has intermediate signal intensity consistent with prior low grade injury. The posterior inferior tibiofibular ligament has intermediate signal intensity, consistent with prior low grade injury. Anterior talofibular ligament: The anterior talofibular ligament is not visible, consistent with a full thickness tear. Posterior talofibular ligament: The posterior talofibular ligament is thickened and has intermediate signal intensity, consistent with prior low grade injury. Calcaneofibular ligament: The calcaneofibular ligament demonstrates intermediate signal intensity, consistent with prior low grade injury. Deltoid ligament complex: Increased T2 signal within the deep deltoid ligament complex is consistent with sprain or low-grade partial-thickness tearing. The superficial component of the deltoid ligament is intact. Lisfranc ligament: The Lisfranc ligament is normal. TENDONS: Flexor tendons of foot: Unremarkable as visualized. Tibialis posterior tendon: Moderate tenosynovitis involves the tibialis posterior tendon. Peroneal tendons: Mild tenosynovitis involves the peroneal tendon sheath. Extensor tendons of foot: Unremarkable as visualized. Tibialis anterior tendon: Unremarkable. Achilles tendon: Unremarkable as visualized. Tarsal canal (Sinus tarsi): Unremarkable. Normal signal of the fat. Tarsal tunnel: Unremarkable. Muscles: Mild edema involves the foot muscles, which is presumed to be posttraumatic. Soft tissues: Severe soft tissue edema involves the dorsal foot. Plantar fascia: Unremarkable. IMPRESSION: 1. Full-thickness tear of the anterior talofibular ligament. 2. Low-grade injuries of the calcaneofibular ligament, posterior talofibular ligament, anterior inferior tibiofibular ligament, and posterior inferior tibiofibular ligament. 3. Sprain of the deep deltoid ligament complex. 4. Healing fracture of the distal fifth metatarsal diaphysis in unchanged alignment. 5. Osseous contusion of the medial malleolus. 6. Moderate tenosynovitis of the tibialis posterior tendon. 7. Mild tenosynovitis of the peroneal tendons.
== END ==
PROVIDERS: PCP Family Medicine; Visit Provider Podiatrist
DX: S93.401A Sprain of unspecified ligament of right ankle, initial encounter (principal); S92.351A Displaced fracture of fifth metatarsal bone, right foot, initial encounter for closed fracture
CPT/HCPCS: 73721

== ENCOUNTER → 2021-08-05 12:56 | Outpatient (CLI) | payer OTHER, SELFPAY ==
--- NOTE | 2021-08-05 13:28 | ECG_ITS ---
APPROVED REPORT Exam: Resting ECG HR:92 bpm ECG Measurements Heart Rate 92 AXES UT 136 P 79 QRSd 84 QRS 97 QT 358 T -9 QTc 442 Conclusion Normal sinus rhythm Rightward axis ST abnormality, possible digitalis effect Abnormal QRS-T angle, consider primary T wave abnormality Abnormal ECG Electronically signed by : Abdi Vargas MD 08/07/2021 17:30:33
[2021-08-05 13:37] LABS: Basophils % 0.3 % (0.1-2.0); Eosinophils % 0.4 % (0.1-12.0); Hematocrit 41.5 % (37.0-47.0); Lymphocytes # 2.5 K/mm3 (0.7-4.5); Lymphocytes % 24.1 % (10-50); Mean Corpuscular HGB Conc 31.4 g/dL (31.8-35.4); Mean Corpuscular Hemoglobin 25.8 pg (27.0-31.2); Mean Corpuscular Volume 82.3 fl (81-99); Monocytes # 0.6 K/mm3 (0.1-1.0); Monocytes % 5.8 % (1.7-9.3); Neutrophils # 7.1 K/mm3 (1.8-7.8); Neutrophils % 69.5 % (37.0-80.0); Platelet Count 280 K/mm3 (142-424); Red Blood Count 5.05 M/mm3 (4.20-5.40); Red Cell Distribution Width 14.6 % (11.5-17.5); White Blood Count 10.2 K/mm3 (4.8-10.8)
[2021-08-05 14:37] LABS: Chloride 104 mmol/L (98-107)
[2021-08-05 14:38] LABS: Potassium 4.5 mmoL/L (3.5-5.1); Sodium 141 mmol/L (136-145)
[2021-08-05 14:40] LABS: Alanine Aminotransferase 19 U/L (12-78); Alkaline Phosphatase 66 U/L (38-126); Aspartate Amino Transferase 21 U/L (14-36); Bilirubin,Total 0.4 mg/dl (0.2-1.3); Blood Urea Nitrogen 14 mg/dl (7-17); Estimated Glomerular Filt Rate 76 ml/min (>60); GFR (African American) 92 ML/MIN (>60)
[2021-08-05 14:41] LABS: Albumin Level 4.1 g/dl (3.5-5.0); Albumin/Globulin Ratio 1.5 (1.1-1.8); Anion Gap 15.5 mEq/L (5-15); Calcium 9.1 mg/dl (8.4-10.2); Carbon Dioxide 26 mmol/L (22.0-30.0); Globulin 2.8 g/dL (1.3-3.2); Glucose 90 mg/dl (74-100); Total Protein,Serum 6.9 g/dl (6.3-8.2)
== END ==
PROVIDERS: Visit Provider Podiatrist
DX: Z01.812 Encounter for preprocedural laboratory examination (principal); Z11.52 Encounter for screening for COVID-19; S82.831A Other fracture of upper and lower end of right fibula, initial encounter for closed fracture; S92.351A Displaced fracture of fifth metatarsal bone, right foot, initial encounter for closed fracture
CPT/HCPCS: 36415; 80053; 85025; 93005; C9803; U0003; U0005

== ENCOUNTER 2021-08-07 06:50 | Day surgery (SDC) | payer OTHER, SELFPAY ==
[2021-08-05 09:17] VITALS: BMI 39.5
[2021-08-06 08:01] LABS: HCG Qualitative, Serum Negative (Negative)
[2021-08-07] VITALS (11 sets, daily range): BP systolic 103–139; BP diastolic 66–90; PULSE 82–108; RESP 18; TEMP 36.6–43; O2SAT 96–99
--- NOTE | 2021-08-07 | XR_ITS ---
PROCEDURE: XR FOOT RT 2V CLINICAL INDICATION: ORIF COMPARISON: CR FTL3 FOOT-LT-3 VIEWS from 07/15/2017 CR XR FOOT WT BEARING RT 3V from 07/22/2021 FINDINGS: Status post ORIF 5th metatarsal fracture with lateral bone plate and cerclage wire with good alignment. Fluoroscopy time: 0.59 minutes Other findings:None. IMPRESSION: Status post ORIF 5th metatarsal fracture with fluoroscopic assistance Dictated by: Palomo Coker MD 08/07/2021 18:33 Palomo Coker MD in [place] 08/07/2021 18:33
--- NOTE | 2021-08-07 08:03 | HMH.ANESCL ---
[facility] Anesthesia Checklist - Patient Identification Patient Identification: Arm Band - Structural Data Admitted From: Home Planned Operative Procedure/s: ORIF foot Consent for Planned Operative Procedure(s) Verified: Yes - NPO Status Verified Time NPO: 00:00 - Additional verifications Anesthesia Reactions: No Hx Blood Transfusions: No Blood Transfusion Reaction: No - Airway Assessment C-Spine Mobility Assessed: Yes TMJ Mobility Assessed: Yes Dentition: Good Dentition - Neurological Assessment Level of Consciousness: Awake Hx Seizures: No Numbness or tingling in extremities: No - Anesthesia Plan Anesthesia Risk discussed: Yes Anesthesia Plan: Verified ASA Class: II Anesthesia Type: MAC w/Block [facility] History I have reviewed the patient's past medical history: Yes Medical History: Denies:: Cancer, Diabetes Mellitus Type 1, Diabetes Mellitus Type 2, Internal Pacemaker, MRSA, Seizures *Have you ever received a pneumonia vaccine?: No *Have you received a flu vaccine this season?: No Other Medical History: Reports: Other (Bipolar disorder). Denies: Blood Transfusion Reaction Anesthesia experience/problems:: PONV Laterality Cases: Bilateral: Tonsillectomy Other Surgeries: Yes: No Previous Surgery, . No: Pacemaker Amputation: No Fractures: No - *Social History Last grade of school completed: High school graduate Smoking Status: Never smoker Alcohol Intake: current Alcohol Intake Frequency:: holidays/special occasions only Substance Use Type: denies use *Occupational Status:: employed Housing: apartment Household Members: children *Travel in the last 8 weeks: None Family Hx:: No significant family history BAKER HEAD history: Non-contributory
--- NOTE | 2021-08-07 09:25 | HMH.OPNOTE ---
Date of procedure: 08/07/21 Pre-op Diagnosis:: 1. Right 5th metatarsal fracture 2. Right ATFL tear 3. Right ankle instability 4. Right gastroc equinus 5. Right ankle synovitis Post-op Diagnosis:: Same Procedure performed:: 1. Right 5th metatarsal ORIF 2. Right gastroc recession 3. Right ATFL repair, mod. Brostrum 4. Right ankle synovectomy 5. Application of injectable graft 6. Application of posterior splint Surgeon:: Misty Manzano DPM PACKAGE WORKER:: Nigel Mercado Anesthesia: MAC, regional (Right popliteal block) Estimated blood loss (mL): 20 Clinical Note:: Patient is a 25-year-old female who presents for surgical planning visit of her right foot and ankle injury on 07/20/2021 when she fell down the stairs. MRI and x-rays reviewed and discussed with the patient. Conservative treatment discussed but not recommended. We discussed surgery. All risks and benefits were discussed including but not limited to: damage to blood vessels and nerves, bleeding, infection, wound complications, delayed, mal or non-union of bone, post-traumatic arthritis, need for further surgery, implant failure, need for removal of implant, prolonged or permanent swelling of the extremity, prolonged or permanent pain or deformity, CRPS/RSD, DVT/PE, and anesthetic complications including . No guarantees were given. All questions fully answered. The patient verbalized understanding and agreed to proceed with surgery. Consent was obtained. Necessary labs and pre-op testing ordered: hcg, CBC, BMP, EKG, covid. e-Rx for [place] 7.5/325 #30, Zofran, Motrin, Valium. Recommend aspirin 81mg post op for DVT/PE risk (FH-DVT, obesity, immobilization). Recommend RKS. NWB to RLE w/ crutches. Operative findings:: Right fifth metatarsal comminuted fracture noted. There were 3 main fracture fragments and at least 4 smaller pieces. Synovitis and fluid noted in the ankle joint. The ATFL was torn. Gastroc equinus noted. Operative note:: On this date and time patient was deemed an appropriate surgical candidate. A pre-operative popliteal regional nerve block was given by anesthesia. With informed consent signed, the patient was taken to the operating theater. The patient was positioned supine. MAC anesthesia was induced. IV Ancef given. Tourniquet was applied to the left thigh @250mmHg. The right lower extremity was prepped and draped in normal sterile fashion. Right gastrocnemius recession: Attention was directed to the posterior medial calf where an linear incision was made. Dissection carried down in layered fashion to the gastrocnemius. 15 blade used to perform a Marvin type incision with the ankle dorsiflexed. There was release of the equinus contracture. Wound was flushed. 3-0 Vicryl used to repair the paratenon and deep/subq tissue. 4-0 monocryl used to repair skin in running subcuticular tissue. Right ATFL repair, mod. Brostrum: Attention was directed to the lateral ankle where an incision was made under the distal fibula. Dissection carried down to the level of the anterior talofibular ligament. Ligament was noted to be torn but intact to the talus. A 3.5 mm bone anchor was inserted into the distal fibula under intraoperative fluoroscopy. The ATFL was then repaired with suture. Reduction of the anterior ankle drawer and talar tilt was noted. Wound was flushed with copious with normal sterile saline. Position checked under intraoperative fluoroscopy. Right ankle synovectomy: Dissection was then carried into the ankle joint. There was some synovitic tissue and fluid noted. Synovitic tissue was sharply excisionally debrided with a 15 blade and forceps. Wound was flushed. 2-0, 3-0 Vicryl was used to reapproximate deep and subcutaneous tissue. 4-0 Monocryl was used to reapproximate the skin in a running subcuticular fashion. Right 5th Metatarsal ORIF: Attention was directed to the dorsal foot, where intra-op fluoroscopy was used to map out the 5th metatarsal on both the AP, MO and lateral views.
--- NOTE | 2021-08-07 10:01 | SUR.OPER ---
0945 family notified of start of procedure
--- NOTE | 2021-08-07 11:00 | XR_ITS ---
PROCEDURE: XR FOOT RT MIN 3V CLINICAL INDICATION: Post op ORIF COMPARISON: CR FTL3 FOOT-LT-3 VIEWS from 07/15/2017 CR XR FOOT WT BEARING RT 3V from 07/22/2021 CR XR FOOT RT 2V from 08/07/2021 FINDINGS: There is a cast in place. Good alignment status post ORIF 5th metatarsal fracture bony detail is obscured by overlying cast. IMPRESSION: Good alignment status post 5th metatarsal ORIF Dictated by: Palomo Coker MD 08/07/2021 17:25 Palomo Coker MD in [place] 08/07/2021 17:25
--- NOTE | 2021-08-07 13:31 | SUR.OPER ---
1149 provided family with update
--- NOTE | 2021-08-07 14:21 | PC.NURSE ---
PT FEELING BETTER, VERY SLEEPY BUT NAUSEA HAS IMPROVED, UP TO BR.
== END 2021-08-07 14:27 | disposition home or self-care (01) ==
LOC: OR 06:51
PROVIDERS: PCP Family Medicine; Visit Provider Podiatrist
PROC: (CPT 28485; principal; 2021-08-07 08:30)
DX: S92.351A Displaced fracture of fifth metatarsal bone, right foot, initial encounter for closed fracture (principal); S82.64XA Nondisplaced fracture of lateral malleolus of right fibula, initial encounter for closed fracture; S93.412A Sprain of calcaneofibular ligament of left ankle, initial encounter; S93.431A Sprain of tibiofibular ligament of right ankle, initial encounter; W10.9XXA Fall (on) (from) unspecified stairs and steps, initial encounter; Y92.019 Unspecified place in single-family (private) house as the place of occurrence of the external cause; M62.461 Contracture of muscle, right lower leg
CPT/HCPCS: 28485; 27687; 27695; 27625; 73620; 73630; 76000; 84703; 96374; C1713; C1762; C1776; J2704

== ENCOUNTER → 2021-09-18 11:33 | Outpatient (CLI) | payer OTHER, SELFPAY ==
--- NOTE | 2021-09-18 11:39 | XR_ITS ---
PROCEDURE: XR ANKLE WT BEARING RT MIN 3V CLINICAL INDICATION: pain, postop views COMPARISON: No exams were available for comparison FINDINGS: There is an anchor screw at the distal fibula. No ankle fracture or dislocation. Postsurgical changes at the 5th metatarsal as described in the foot report. IMPRESSION: No acute finding of the ankle Dictated by: Palomo Coker MD 09/18/2021 12:58 Palomo Coker MD in [place] 09/18/2021 12:58
--- NOTE | 2021-09-18 11:39 | XR_ITS ---
PROCEDURE: XR FOOT WT BEARING RT 3V CLINICAL INDICATION: Pain, postop views COMPARISON: CR FTL3 FOOT-LT-3 VIEWS from 07/15/2017 CR XR FOOT WT BEARING RT 3V from 07/22/2021 CR XR FOOT RT MIN 3V from 08/07/2021 CR XR FOOT RT 2V from 08/07/2021 FINDINGS: The cast has been removed. Lateral bone plate is present at the 5th metatarsal. Distal fracture fragment is mildly displaced medially. There is some callus formation developing medially. There is an anchor screw at the distal fibula. IMPRESSION: Healing 5th metatarsal fracture status post as described above Dictated by: Palomo Coker MD 09/18/2021 12:37 Palomo Coker MD in [place] 09/18/2021 12:37
== END ==
PROVIDERS: PCP Family Medicine; Visit Provider Podiatrist
DX: S92.354D Nondisplaced fracture of fifth metatarsal bone, right foot, subsequent encounter for fracture with routine healing (principal); Z98.890 Other specified postprocedural states
CPT/HCPCS: 73610; 73630

== ENCOUNTER 2021-10-14 15:00 | Outpatient (RCR) | payer OTHER, SELFPAY | END 2021-10-14 15:05 | disposition home or self-care (01) | LOC: PT 15:00 | PROVIDERS: PCP Family Medicine; Visit Provider Podiatrist | DX: S92.351D Displaced fracture of fifth metatarsal bone, right foot, subsequent encounter for fracture with routine healing (principal); S86.011D Strain of right Achilles tendon, subsequent encounter; S93.401D Sprain of unspecified ligament of right ankle, subsequent encounter; Z98.890 Other specified postprocedural states | CPT/HCPCS: 97010; 97014; 97016; 97035; 97110; 97112; 97163; G0283 ==

== ENCOUNTER → 2021-10-24 10:54 | Outpatient (CLI) | payer OTHER, SELFPAY ==
--- NOTE | 2021-10-24 10:57 | XR_ITS ---
FINAL REPORT CLINICAL HISTORY: postop views FINDINGS: RIGHT FOOT Three views demonstrate a side plate and screws securing an osteotomy of the fifth metatarsal. The bones are osteopenic. There is a single orthopedic screw in the distal fibula. IMPRESSION: Postoperative changes with no acute process. Reviewed, Interpreted and Dictated by Dejon Bell MD Transcribed by Ann Carvajal Authenticated by Dejon Bell MD on 10/24/2021 12:22:25 PM [facility]
== END ==
PROVIDERS: PCP Family Medicine; Visit Provider Podiatrist
DX: S92.351A Displaced fracture of fifth metatarsal bone, right foot, initial encounter for closed fracture (principal); Z98.890 Other specified postprocedural states
CPT/HCPCS: 73630

== ENCOUNTER → 2021-11-01 15:14 | Outpatient (CLI) | payer OTHER, SELFPAY ==
--- NOTE | 2021-11-01 15:14 | CT_ITS ---
FINAL REPORT TECHNIQUE: Thin section axial CT images with coronal and sagittal reformats were performed. 3-D images were also performed. This study was performed with techniques to keep radiation doses as low as reasonably achievable (ALARA). Individualized dose reduction techniques using automated exposure control or adjustment of mA and/or kV according to the patient''s size were employed. CLINICAL HISTORY: FRACTURE EVALUATION FINDINGS: There are postoperative changes of the lateral malleolus. There is a presumed bone island in the medial talar dome. The bones are osteopenic. There is a fracture of the distal fifth metatarsal with postoperative changes of ORIF. There is partial bony fusion actual lines are still visible along its medial aspect. No other fracture is identified. IMPRESSION: Fracture as above. Reviewed, Interpreted and Dictated by Johnny Marcano III, MD Transcribed by Dee Dee Day Authenticated by Johnny Marcano III, MD on 11/07/2021 11:27:14 AM [facility]
== END ==
PROVIDERS: PCP Family Medicine; Visit Provider Podiatrist
DX: S92.354K Nondisplaced fracture of fifth metatarsal bone, right foot, subsequent encounter for fracture with nonunion (principal); Z98.890 Other specified postprocedural states
CPT/HCPCS: 73700

== ENCOUNTER → 2021-12-05 10:49 | Outpatient (CLI) | payer OTHER, SELFPAY ==
--- NOTE | 2021-12-05 10:56 | XR_ITS ---
FINAL REPORT CLINICAL HISTORY: fracture eval, postop COMPARISON: 10/24/2021 FINDINGS: RIGHT FOOT Two views demonstrate postoperative changes of the fifth metatarsal. There are also postoperative changes of the lateral malleolus. There is a fracture of the distal fifth metatarsal. The bony alignment is stable. There is no new bony abnormality. IMPRESSION: Postsurgical changes as above. Reviewed, Interpreted and Dictated by Johnny Marcano III, MD Transcribed by Dee Dee Day Authenticated by Johnny Marcano III, MD on 12/05/2021 01:59:43 PM [facility]
== END ==
PROVIDERS: PCP Family Medicine; Visit Provider Podiatrist
DX: S92.351A Displaced fracture of fifth metatarsal bone, right foot, initial encounter for closed fracture (principal); Z98.890 Other specified postprocedural states
CPT/HCPCS: 73630

== ENCOUNTER → 2022-01-21 14:57 | Outpatient (CLI) | payer OTHER, SELFPAY ==
--- NOTE | 2022-01-21 15:01 | XR_ITS ---
FINAL REPORT CLINICAL HISTORY: fracture evaluation COMPARISON: December 05, 2021 FINDINGS: RIGHT FOOT: Three views of the right foot were obtained. There is postoperative change involving the 5th metatarsal. There is a screw plate, multiple screws and 2 wires. The plate is fractured distally. Positioning is stable. There is medial angulation of the distal fracture fragment. There is apparent nonunion. Postoperative changes are seen of the distal fibula. IMPRESSION: Postoperative changes as described with a fractured screw plate. Stable alignment. Reviewed, Interpreted and Dictated by Johnny Marcano III, MD Transcribed by Krzysztof Moore Authenticated by Johnny Marcano III, MD on 01/21/2022 04:08:07 PM [facility]
== END ==
PROVIDERS: PCP Family Medicine; Visit Provider Podiatrist
DX: M79.671 Pain in right foot (principal); S92.351A Displaced fracture of fifth metatarsal bone, right foot, initial encounter for closed fracture; Z96.9 Presence of functional implant, unspecified; Z98.890 Other specified postprocedural states
CPT/HCPCS: 73630

== ENCOUNTER → 2022-02-12 13:10 | Outpatient (CLI) | payer OTHER, SELFPAY ==
--- NOTE | 2022-02-12 13:13 | XR_ITS ---
FINAL REPORT CLINICAL HISTORY: pain, injury COMPARISON: January 21, 2022 FINDINGS: 3 views of the right foot were obtained. There is a sideplate and screws securing the transverse fracture of the distal 5th metatarsal. The sideplate is disrupted. The fracture lines are clearly visible. There is medial angulation of the distal fracture fragment. The joint spaces are intact. The soft tissues are unremarkable. IMPRESSION: Disrupted hardware securing a distal 5th metatarsal fracture. Reviewed, Interpreted and Dictated by Dejon Bell MD Transcribed by Krzysztof Moore Authenticated by Dejon Bell MD on 02/12/2022 03:28:21 PM [facility]
--- NOTE | 2022-02-12 13:13 | XR_ITS ---
FINAL REPORT CLINICAL HISTORY: pain, injury FINDINGS: RIGHT ANKLE: Three weight-bearing views of the right ankle were obtained. There is no acute fracture or dislocation. There is an orthopedic screw in the inferior fibula. The joint spaces and mortise are intact. There is no soft tissue abnormality. IMPRESSION: No acute process. Reviewed, Interpreted and Dictated by Dejon Bell MD Transcribed by Krzysztof Moore Authenticated by Dejon Bell MD on 02/12/2022 03:28:09 PM [facility]
== END ==
PROVIDERS: PCP Family Medicine; Visit Provider Podiatrist
DX: M25.571 Pain in right ankle and joints of right foot (principal); M79.671 Pain in right foot
CPT/HCPCS: 73610; 73630

== ENCOUNTER → 2022-09-08 13:08 | Outpatient (CLI) | payer OTHER, SELFPAY ==
[2022-09-12 10:03] LABS: Neisseria gonorrhoeae, NAA Negative (Negative)
== END ==
PROVIDERS: Visit Provider Obstetrics & Gynecology
DX: N90.89 Other specified noninflammatory disorders of vulva and perineum (principal)
CPT/HCPCS: 87491; 87591

== ENCOUNTER → 2022-12-26 14:02 | Outpatient (CLI) | payer OTHER, SELFPAY ==
[2022-12-28 12:07] LABS: Rapid Plasma Reagin Ab Titer Non Reactive (NonRea<1:1)
[2023-01-05 02:16] LABS: HIV Screen 4th Generation wRfx Non Reactive; Hepatitis C Antibody Non Reactive
== END ==
PROVIDERS: PCP Family Medicine; Visit Provider Obstetrics & Gynecology
DX: Z72.51 High risk heterosexual behavior (principal); Z11.4 Encounter for screening for human immunodeficiency virus [HIV]
CPT/HCPCS: 36415; 86593; 86703; 87380; G0432

== ENCOUNTER 2022-12-31 15:59 | Emergency (ER) | payer OTHER, SELFPAY ==
[2022-12-31 16:20] VITALS: BP 144/84; PULSE 98; RESP 20; TEMP 36.7; O2SAT 99; BMI 40.6
--- NOTE | 2022-12-31 16:20 | EXP.UTC ---
Discharge Plan Disposition Patient Disposition: Home, Self-Care Condition: Good Prescriptions Prescriptions: New amoxicillin [amoxicillin] 500 mg tablet 500 mg PO TID 10 Days Qty: 30 0RF methylprednisolone 4 mg Tablets,Dose Pack 4 mg PO DIRECTED Qty: 21 0RF meclizine 25 mg tablet 25 mg PO Q6HP PRN (Reason: dizziness or vertigo) Qty: 30 0RF No Action valacyclovir [Valtrex] 1 gram tablet 1,000 mg PO BID 3 Days Qty: 6 2RF Referrals Follow up/Referrals: Yaron Patrick MD [Primary Care Provider] - See instructions Activity Restrictions/Add. Instructions Additional Instructions/Restrictions: Drink plenty of fluids. Take tylenol or ibuprofen for pain or fever. Take the medications as directed. Follow up with your regular doctor. GO TO THE ER FOR ANY WORSENING SYMPTOMS Clinical Impressions Clinical Impression: Otitis media, Vertigo Stand Alone Forms Stand Alone Forms: Work/School Release Instructions Patient Instructions: Middle Ear Infection, DI for Vertigo Discharge ED Provider: Wayne Ray [facility] General Stated complaint: Light headed,Ear Pain vomiting Time Seen by Provider: 12/31/22 16:16 History of Present Illness Provider Complaint: She states that for the past 2 days she has had bilateral ear pain and sinus congestion. Related Data Previous Rx's Medication Instructions Recorded valacyclovir 1 gram tablet 1,000 mg PO BID 3 days #6 tabs 12/26/22 (Valtrex) amoxicillin 500 mg tablet 500 mg PO TID 10 days #30 tabs 12/31/22 meclizine 25 mg tablet 25 mg PO Q6HP PRN dizziness or 12/31/22 vertigo #30 tabs methylprednisolone 4 mg tablets in 4 mg PO DIRECTED #21 tabs 12/31/22 a dose pack Allergies Allergy/AdvReac Type Severity Reaction Status Date / Time No Known Allergies Allergy Verified 12/31/22 16:25 [facility] Disclaimer: The information contained in this section may have been updated after the patient was seen, as this information can be updated by other users. 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 current occupational exposures/hazards: No caffeine: Yes ROS Obtained: Yes All systems reviewed & no additional complaints except as documented Constitutional Constitutional: Denies chills, Reports fever(s) and Reports poor appetite Eyes Eyes: Denies eye discharge ENT Ears, Nose, Mouth, and Throat: Denies ear discharge, Reports otalgia, Denies hearing loss, Denies sinus pain and Reports sore throat Cardiovascular Cardiovascular: Denies chest pain and Denies dyspnea Respiratory Respiratory: Denies chest congestion, Reports cough and Denies dyspnea Gastrointestinal Gastrointestingal: Denies abdominal pain, diarrhea, nausea or vomiting Musculoskeletal Musculoskeletal: Denies arthralgias Integumentary/Breasts Skin/Breast: Denies rash Physical Exam General General appearance: alert and in no apparent distress Head Head exam: atraumatic, normocephalic and normal inspection Eye Eye exam: Present normal appearance; Absent PERRL or EOMI ENT ENT exam: Present mucous membranes moist and normal external ear exam Expanded ENT Exam TM/Canal exam: Bilateral TM: erythema, bulging and effusion Nose exam: Absent sinus tenderness Nasal speculum exam: Bilateral: normal Mouth exam: Present normal external inspection and other; Absent drooling Teeth exam: Present normal inspection Throat exam: Present tonsillar erythema and tonsillomegaly Neck Neck exam: Present normal inspection, full ROM and trachea midline; Absent tend
[2022-12-31 16:26] LABS: UTC Pregnancy Test, Urine Negative (Negative)
[2022-12-31 17:35] VITALS: BP 144/84; PULSE 98; RESP 20; TEMP 36.7; O2SAT 99
== END 2022-12-31 17:35 | disposition home or self-care (01) ==
PROVIDERS: Emergency Provider Nurse Practitioner Family; PCP Family Medicine
DX: H66.93 Otitis media, unspecified, bilateral (principal); R42 Dizziness and giddiness; R11.10 Vomiting, unspecified
CPT/HCPCS: 81025; 99212; 99214; G0463

== ENCOUNTER 2023-03-31 14:16 | Emergency (ER) | payer OTHER, SELFPAY ==
[2023-03-31 14:17] VITALS: BP 153/90; PULSE 100; RESP 18; TEMP 36.6; O2SAT 100; BMI 39.4
--- NOTE | 2023-03-31 14:27 | EXP.UTC ---
Discharge Plan Disposition Patient Disposition: Home, Self-Care Condition: Good Prescriptions Prescriptions: New amoxicillin [amoxicillin] 875 mg tablet 875 mg PO Q12H Qty: 20 0RF methylprednisolone 4 mg Tablets,Dose Pack 4 mg PO DIRECTED Qty: 21 0RF ufsflyyeyyafifg-dowuqyleu-PZ [Bromfed DM] 2-30-10 mg/5 mL Syrup 5 ml PO Q6H PRN (Reason: Cough) Qty: 240 0RF No Action valacyclovir [Valtrex] 1 gram tablet 1,000 mg PO BID 3 Days Qty: 6 2RF metronidazole 500 mg tablet 500 mg PO BID 5 Days Qty: 10 0RF Rx Instructions: Take 1 tab by mouth, twice daily for 5 days doxycycline hyclate 100 mg capsule 100 mg PO BID 14 Days Qty: 28 0RF Rx Instructions: Take 1 capsule by mouth, twice daily for 7 days amoxicillin [amoxicillin] 500 mg tablet 500 mg PO TID 10 Days Qty: 30 0RF methylprednisolone 4 mg Tablets,Dose Pack 4 mg PO DIRECTED Qty: 21 0RF meclizine 25 mg tablet 25 mg PO Q6HP PRN (Reason: dizziness or vertigo) Qty: 30 0RF Referrals Follow up/Referrals: Stephanie Lazo APRN [Primary Care Provider] - See instructions Activity Restrictions/Add. Instructions Additional Instructions/Restrictions: Drink plenty of fluids. Take tylenol or ibuprofen for pain or fever. Take the medications as directed. Follow up with your regular doctor. GO TO THE ER FOR ANY WORSENING SYMPTOMS Clinical Impressions Clinical Impression: Otitis media, Sinusitis Instructions Patient Instructions: Sinusitis, DI for Sinusitis Discharge ED Provider: Wayne Ray [facility] General Stated complaint: Ear pain Time Seen by Provider: 03/31/23 14:27 History of Present Illness Provider Complaint: She states that for the past 2 weeks she has had bilateral ear pain and pressure. She also has a sore throat and a dry cough. Related Data Previous Rx's Medication Instructions Recorded valacyclovir 1 gram tablet 1,000 mg PO BID 3 days #6 tabs 12/26/22 (Valtrex) amoxicillin 500 mg tablet 500 mg PO TID 10 days #30 tabs 12/31/22 meclizine 25 mg tablet 25 mg PO Q6HP PRN dizziness or 12/31/22 vertigo #30 tabs methylprednisolone 4 mg tablets in 4 mg PO DIRECTED #21 tabs 12/31/22 a dose pack doxycycline hyclate 100 mg capsule 100 mg PO BID 14 days #28 caps 01/02/23 metronidazole 500 mg tablet 500 mg PO BID 5 days #10 tabs 01/02/23 amoxicillin 875 mg tablet 875 mg PO Q12H #20 tabs 03/31/23 fqkoacnhuftupyl-ovzzysbkzmxappk-IU 5 ml PO Q6H PRN Cough #240 mL 03/31/23 2 mg-30 mg-10 mg/5 mL oral syrup (Bromfed DM) methylprednisolone 4 mg tablets in 4 mg PO DIRECTED #21 tabs 03/31/23 a dose pack Allergies Allergy/AdvReac Type Severity Reaction Status Date / Time No Known Allergies Allergy Verified 12/31/22 16:25 [facility] Disclaimer: The information contained in this section may have been updated after the patient was seen, as this information can be updated by other users. 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
[2023-03-31 14:48] LABS: UTC Strep Screen (Rapid) Negative (Negative)
[2023-03-31 14:52] VITALS: BP 153/90; PULSE 100; RESP 18; TEMP 36.6; O2SAT 100
== END 2023-03-31 14:53 | disposition home or self-care (01) ==
PROVIDERS: Emergency Provider Nurse Practitioner Family; PCP Nurse Practitioner Family
DX: H66.93 Otitis media, unspecified, bilateral (principal); J01.90 Acute sinusitis, unspecified
CPT/HCPCS: 87880; 99212; 99214; G0463

== ENCOUNTER → 2023-05-04 10:31 | Outpatient (CLI) | payer OTHER, SELFPAY ==
--- NOTE | 2023-05-04 10:34 | XR_ITS ---
FINAL REPORT CLINICAL HISTORY: Right ankle pain surgery COMPARISON: 02/12/2022 FINDINGS: AP, oblique, and lateral views of the right ankle were obtained. There is a surgical screw in the distal fibula. There is no fracture or dislocation. The ankle mortise is intact. Soft tissues are normal. IMPRESSION: No acute osseous abnormality of the right ankle. Reviewed, Interpreted and Dictated by Sherly Dela Cruz MD Transcribed by Licha Bermeo Authenticated and . [facility]
--- NOTE | 2023-05-04 10:34 | XR_ITS ---
FINAL REPORT CLINICAL HISTORY: right foot pain surgery COMPARISON: 02/12/2022 FINDINGS: AP, oblique and lateral views of the right foot were obtained. Postoperative changes from ORIF of the fifth metatarsal. Distal aspect of the surgical plate is fractured. 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 No acute osseous abnormality. No soft tissue abnormality. IMPRESSION: Postoperative changes from ORIF fifth metatarsal. Surgical plate fractured, present on prior study. Reviewed, Interpreted and Dictated by Sherly Dela Cruz MD Transcribed by Licha Bermeo Authenticated and [facility]
== END ==
PROVIDERS: PCP Nurse Practitioner Family; Visit Provider Podiatrist
DX: M79.671 Pain in right foot (principal); M25.571 Pain in right ankle and joints of right foot; G89.18 Other acute postprocedural pain
CPT/HCPCS: 73610; 73630

== ENCOUNTER 2023-05-15 13:32 | Emergency (ER) | payer OTHER, SELFPAY ==
[2023-05-15 13:33] VITALS: BP 138/90; PULSE 86; RESP 18; TEMP 36.9; O2SAT 100; BMI 39.5
--- NOTE | 2023-05-15 14:07 | EXP.UTC ---
Discharge Plan Disposition Patient Disposition: Home, Self-Care Condition: Good Prescriptions Prescriptions: New prednisone 20 mg tablet 20 mg PO BID Qty: 10 0RF No Action phentermine [Adipex-P] 37.5 mg capsule 37.5 mg PO DAILY Rx Instructions: must administer 30 minutes before or 1-2 hours after breakfast valacyclovir [Valtrex] 1 gram tablet 1,000 mg PO BID 3 Days Qty: 6 2RF metronidazole 500 mg tablet 500 mg PO BID 5 Days Qty: 10 0RF Rx Instructions: Take 1 tab by mouth, twice daily for 5 days meclizine 25 mg tablet 25 mg PO Q6HP PRN (Reason: dizziness or vertigo) Qty: 30 0RF Referrals Follow up/Referrals: Stephanie Lazo APRN [Primary Care Provider] - See instructions Clinical Impressions Clinical Impression: Mucocele of lower lip Discharge ED Provider: Vinita Soliman [facility] [place] HPI General Stated complaint: bottom lip swollen Mode of Arrival: Ambulatory Source of Information: Patient Limitations: No Limitations Time Seen by Provider: 05/15/23 14:07 Description of Symptoms (Recalled from Triage Doc. by RN): Patient reports a swollen painful bottom lip for 2 days. HEENT Symptoms (Recalled from RN notes): Yes Resp Symptoms (Recalled from RN notes): No Skin Symptoms (Recalled from RN notes): No MS Symptoms (Recalled from RN notes): No Functional Status (Recalled from RN notes): wnl History of Present Illness Provider Complaint: Left side of lower lip swollen X 2 days. No known injury. Has gone down some. Tingly and numbish. Not really painful. Onset (ago): day(s) (2) Location: mouth Relieving factors: none Exacerbating factors: none Associated symptoms: denies other symptoms Treatments prior to arrival: none Related Data Home Medications Medication Instructions Recorded Confirmed phentermine 37.5 mg capsule 37.5 mg PO DAILY 05/04/23 05/04/23 (Adipex-P) Previous Rx's Medication Instructions Recorded valacyclovir 1 gram tablet 1,000 mg PO BID 3 days #6 tabs 12/26/22 (Valtrex) meclizine 25 mg tablet 25 mg PO Q6HP PRN dizziness or 12/31/22 vertigo #30 tabs metronidazole 500 mg tablet 500 mg PO BID 5 days #10 tabs 01/02/23 prednisone 20 mg tablet 20 mg PO BID #10 tabs 05/15/23 Allergies Allergy/AdvReac Type Severity Reaction Status Date / Time No Known Allergies Allergy Verified 05/04/23 11:41 Worker's Comp Is this a Worker's Comp case?: No [facility] Disclaimer: The information contained in this section may have been updated after the patient was seen, as this information can be updated by other users. 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 current occupational exposures/hazards: No caffeine: Yes ROS Obtained: Yes All systems reviewed & no additional complaints except as documented ENT Ears, Nose, Mouth, and Throat: Reports as per HPI and Reports lip swelling Allergic/Immunologic Allergic/Immunologic: Reports lip swelling Physical Exam General General appearance: alert and in no apparent distress Head Head exam: atraumatic, normocephalic and normal inspection Expanded ENT Exam Mouth exam: Present lip swelling Neck Neck exam: Present normal inspection, full ROM and trachea midline; Absent meningismus or lymphadenopathy Chest Chest inspection: Present normal inspection and symmetric chest wall rise; Absent tenderness Respiratory Respiratory exam: Present normal lung sounds bilaterally; Absent respiratory distress Cardiovascular Cardiovascular exam: Present regular rate and normal rhyth
[2023-05-15 14:28] VITALS: BP 138/90; PULSE 86; RESP 18; TEMP 36.9; O2SAT 100
== END 2023-05-15 14:28 | disposition home or self-care (01) ==
PROVIDERS: Emergency Provider Physician Assistant; PCP Nurse Practitioner Family
DX: K13.0 Diseases of lips (principal)
CPT/HCPCS: 99212; 99214; G0463

== ENCOUNTER → 2023-05-28 15:22 | Outpatient (CLI) | payer OTHER, SELFPAY ==
--- NOTE | 2023-05-28 15:22 | CT_ITS ---
FINAL REPORT TECHNIQUE: Thin section axial CT images with coronal and sagittal reformats were performed. 3D reformatted images were obtained and reviewed. This study was performed with techniques to keep radiation doses as low as reasonably achievable (ALARA). Individualized dose reduction techniques using automated exposure control or adjustment of mA and/or kV according to the patient''s size were employed. CLINICAL HISTORY: Right Foot Pain COMPARISON: 05/04/2023 FINDINGS: There are postoperative changes in the lateral malleolus and 5th metatarsal. Screw plate and multiple screws are seen in the 5th metatarsal. There is medial angulation of the distal 5th metatarsal. Finding is stable since prior exam. There is lack of bony union of the distal 5th metatarsal fracture. Finding is well seen on the sagittal and coronal reformatted images. The distal aspect of the screw plate appears to be fractured. The other bony structures appear intact. No soft tissue mass or fluid collection is identified. 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 Reviewed, Interpreted and Dictated by Johnny Marcano III, MD Transcribed by Dee Dee Day Authenticated and [facility]
== END ==
PROVIDERS: PCP Nurse Practitioner Family; Visit Provider Podiatrist
DX: M79.671 Pain in right foot (principal); M25.571 Pain in right ankle and joints of right foot
CPT/HCPCS: 73700

== ENCOUNTER 2023-07-10 07:23 | Day surgery (SDC) | payer OTHER, SELFPAY ==
[2023-07-07 17:09] VITALS: BMI 40.3
[2023-07-10] VITALS (8 sets, daily range): BP systolic 114–139; BP diastolic 70–87; PULSE 80–111; RESP 16–18; TEMP 36.1–43; O2SAT 92–99
[2023-07-10 08:03] LABS: Urine Pregnancy, HCG Qual. Negative (Negative)
--- NOTE | 2023-07-10 08:05 | ECG_ITS ---
APPROVED REPORT Exam: Resting ECG HR:87 bpm ECG Measurements Heart Rate 87 AXES NC 158 P 48 QRSd 86 QRS 79 QT 358 T 37 QTc 402 Conclusion SINUS RHYTHM NORMAL ECG UNCONFIRMED REPORT Electronically signed by : Abdi Vargas MD 07/12/2023 07:39:35
[2023-07-10 08:07] LABS: Basophils % 0.3 % (0.1-2.0); Eosinophils # 0.2 K/mm3 (0.0-0.4); Eosinophils % 1.6 % (0.1-12.0); Hematocrit 42.5 % (37.0-47.0); Hemoglobin 13.9 g/dL (12.2-16.2); Lymphocytes # 2.2 K/mm3 (0.7-4.5); Lymphocytes % 23.8 % (10-50); Mean Corpuscular HGB Conc 32.7 g/dL (31.8-35.4); Mean Corpuscular Hemoglobin 27.6 pg (27.0-31.2); Mean Corpuscular Volume 84.4 fl (81-99); Mean Platelet Volume 9.3 fl (7.4-10.4); Monocytes # 0.4 K/mm3 (0.1-1.0); Monocytes % 4.8 % (1.7-9.3); Neutrophils # 6.3 K/mm3 (1.8-7.8); Neutrophils % 69.5 % (37.0-80.0); Platelet Count 259 K/mm3 (142-424); Red Blood Count 5.03 M/mm3 (4.20-5.40); Red Cell Distribution Width 14.6 % (11.5-17.5); White Blood Count 9.1 K/mm3 (4.8-10.8)
[2023-07-10 08:12] LABS: Alanine Aminotransferase 32 U/L (12-78); Albumin/Globulin Ratio 1.4 (1.1-1.8); Alkaline Phosphatase 54 U/L (38-126); Aspartate Amino Transferase 27 U/L (14-36); Bilirubin,Total 0.9 mg/dl (0.2-1.3); Blood Urea Nitrogen 12 mg/dl (7-17); Calcium 8.4 mg/dl (8.4-10.2); Carbon Dioxide 27 mmol/L (22.0-30.0); Chloride 107 mmol/L (98-107); Creatinine Clearance Estimated 229 mL/min (50-200); Estimated Glomerular Filt Rate 100 ml/min (>60); GFR (African American) 121 ML/MIN (>60); Globulin 2.9 g/dL (1.3-3.2); Glucose 93 mg/dl (74-100); Sodium 140 mmol/L (136-145); Total Protein,Serum 6.9 g/dl (6.3-8.2)
--- NOTE | 2023-07-10 10:25 | EXP.OP.NOTE ---
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 She is accompanied by her mother today as well. Patient is in very good spirits and ready for the procedure and explains that we were removing the broken hardware from her right foot as well as taking the fifth metatarsal head out. She understands that she will have a limited activity for the next couple of weeks; however I explained that it should be significantly less than the initial surgery with the fracture she had. There is a slight risk of infection and she may have some postoperative pain and inflammation and she also would prefer to manage that with Tylenol and ibuprofen rather than pain medication or narcotics. The consent was reviewed with the patient and we signed the operative foot with marker. Patient was wheeled to the operating room and positioned on the operating room table in a supine position. Anesthesia department sedated the patient. The right foot was scrubbed prepped and draped in usual aseptic manner. Timeout was called and confirmed by the staff in the room. At this point Esmarch bandage was used to extend the patient's right foot and tourniquet inflated to 250 mill millimeters mercury above the Malleoli right ankle. Visualization was conducted with C arm in the room to identify the broken plate and screws and wire of the fifth metatarsal as well as the nonunion of the right foot. Using the original incision line for the original fifth metatarsal fracture and plate fixation, incision was made in the linear direction and then deep into subtenons tissues been careful preserve protect vital neurovascular structures. Significant amount of scar tissue was present all the way down to the periosteal bone and the plate was identified. 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 Were able to dissect of the plate and remove the screws and plate at the distal end along with the fifth metatarsal head that was resected at the pseudoarthrosis nonunion site with sagittal bone saw. Also removed the remaining proximal plate with its 3 screws and also removed the metal wire which was also used in the original fixation. Irrigated the wound with copious months of sterile normal saline. Modified the tissues with rongeur to have smooth contour of the fifth metatarsal shaft. Irrigated again with copious months of sterile normal saline and then closed in layers with 2-0 Vicryl 3-0 Vicryl and 3-0 nylon. The patient tolerated the procedure anesthesia well we dressed the wound with Xeroform gauze, 4 x 4's, soft roll and an outer elastic bandage. Tourniquet was released and a prompt hyperemic response noted all digits of the patient's right foot. She will be discharged to home after she is in same-day surgery and discharged per anesthesia. Wear a surgery shoe is much as possible to alleviate excess pressure on her foot she is able to ambulate; however I am encouraging her mainly bathroom privileges. Keep dressing clean dry and intact till her next appointment in 1 week at the podiatry clinic here at [facility]. Any other concerns please return to the podiatry clinic or urgent treatment or ER before next visit. Tourniquet time (min): 45 Condition: stable Disposition: same day Specimens:: Hardware: Plate, screws x 5; wire; Fifth metatarsal head Right foot. Complications:: negative
--- NOTE | 2023-07-10 11:31 | EXP.ANES.CKL ---
[facility] Disclaimer: The information contained in this section may have been updated after the patient was seen, as this information can be updated by other users. 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 current occupational exposures/hazards: No caffeine: Yes [facility] Anesthesia Checklist Patient Identification Patient Identification: Arm Band Structural Data Admitted From: Home Planned Operative Procedure/s: Right 5th Metatarsal Hardware Removal Consent for Planned Operative Procedure(s) Verified: Yes Verified Documents: Surgical Consent and History and Physical NPO Status Verified Time NPO: 00:00 Additional verifications Anesthesia Reactions: No Hx Blood Transfusions: No Blood Transfusion Reaction: No Airway Assessment Mallampati Score:: Class II C-Spine Mobility Assessed: Yes TMJ Mobility Assessed: Yes Dentition: Good Dentition Neurological Assessment Level of Consciousness: Awake and Alert Anesthesia Plan Anesthesia Risk discussed: Yes Anesthesia Plan: Verified ASA Class: II Anesthesia Type: MAC w/Block (Popliteal)
== END 2023-07-10 11:20 | disposition home or self-care (01) ==
PROVIDERS: PCP Nurse Practitioner Family; Visit Provider Podiatrist
PROC: (CPT 20680; principal; 2023-07-10 08:45)
DX: T84.84XA Pain due to internal orthopedic prosthetic devices, implants and grafts, initial encounter (principal); S92.354K Nondisplaced fracture of fifth metatarsal bone, right foot, subsequent encounter for fracture with nonunion; M79.671 Pain in right foot; R29.6 Repeated falls; G89.28 Other chronic postprocedural pain
CPT/HCPCS: 20680; 28113; 80053; 81025; 85025; 93005; 96374; J2405

== ENCOUNTER 2023-11-12 13:24 | Emergency (ER) | payer OTHER, SELFPAY ==
[2023-11-12 13:40] VITALS: BP 125/86; PULSE 93; RESP 19; TEMP 37.3; O2SAT 100; BMI 47.3
[2023-11-12 14:28] LABS: UTC Influenza A Antigen Negative (Negative); UTC Influenza B Antigen Negative (Negative); UTC Strep Screen (Rapid) Negative (Negative)
--- NOTE | 2023-11-12 14:33 | ED_ITS ---
Discharge Plan Disposition Patient Disposition: Home, Self-Care Condition: Good Referrals Follow up/Referrals: Stephanie Lazo APRN [Primary Care Provider] - See instructions Activity Restrictions/Add. Instructions Additional Instructions/Restrictions: *Monitor Temp, Over the counter Motrin or Tylenol as directed/as needed Tylenol every 4 hours and Motrin every 6 hours (as long as your family doctor has told you that you can take it) for fever or pain. and straight to ER if unable to lower temp less than 101.0 after medication given *Warm salt water gargles may help to soothe the throat *Throat Lozenges? *Warm fluids like tea with honey may help to soothe the throat? *Sleep elevated *Humidifier/Vaporizer Your throat swab was sent for culture. Those results are typically sent to your primary care. Be sure to follow up in 2-3 days with your family doctor/primary care physician if no improvement so they can review those result and treat if necessary. If you don?t have a primary care doctor, I recommend you get one but in the mean time, you will have to return to a walk in clinic Follow up IMMEDIATELY for new or worsening symptoms or no Noticeable improvement over the next 48-72 hours. 911 for difficulty breathing or sw allowing You were tested for today for Upper Respiratory Panel with COVID19 your test result should be back in the next 24-48 hours, you check your results on the [facility] Portal if your COVID test is positive you must Quarantine for 5 days Clinical Impressions Clinical Impression: Viral syndrome Stand Alone Forms Stand Alone Forms: Work/School Release Instructions Patient Instructions: DI for Viral Syndrome Discharge ED Provider: Shelbi Leon [facility] [place] HPI General Stated complaint: cough mckinney ba nausea Mode of Arrival: Ambulatory Source of Information: Patient Limitations: No Limitations Time Seen by Provider: 11/12/23 14:33 Description of Symptoms (Recalled from Triage Doc. by RN): PATIENT C/O COUGH, BODY ACHES, AND HEADACHE SINCE THIS MORNING. RECENTLY EXPOSED TO STREP AND FLU HEENT Symptoms (Recalled from RN notes): Yes Resp Symptoms (Recalled from RN notes): Yes Skin Symptoms (Recalled from RN notes): No MS Symptoms (Recalled from RN notes): No Functional Status (Recalled from RN notes): WNL History of Present Illness Provider Complaint: Patient states that she was recently around someone with strep and flu States that she woke up this morning feeling achy all over, nasal congestion cough and headache so she came in Related Data Allergies Allergy/AdvReac Type Severity Reaction Status Date / Time No Known Allergies Allergy Verified 10/20/23 15:30 Worker's Comp Is this a Worker's Comp case?: No [facility] Disclaimer: The information contained in this section may have been updated after the patient was seen, as this information can be updated by other users. 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 current occupational exposures/hazards: No caffeine: Yes ROS Obtained: Yes All systems reviewed & no additional complaints except as documented and Yes Systems reviewed as appropriate & no additional complaints except as documented Constitutional Constitutional: Reports system reviewed and no additional complaints, except as documented, Reports as per HPI, Reports body ache, Reports chills and Reports headache(s) ENT Ears, Nose, Mouth, and Throat: Reports system reviewed and no additional complaints, except as documented, Reports as per HPI, Reports headache(s), Reports nasal congestion, Reports nasal discharge and Reports sore throat Cardiovascular Cardiovascular: Reports system reviewed and no additional complaints, except as documented and Reports as per HPI Respiratory Respiratory: Reports system reviewed and no additional complaints, except as documented, Reports as per HPI and Reports cough Gastrointestinal Gastrointestingal: Reports system reviewed and no additional complaints, except as documented and as per HPI Neurologic Neurologic: Reports headache(s) Physical Exam General General appearance: alert and in no apparent distress ENT ENT exam: Present mucous membranes moist Expanded ENT Exam Nose exam: Absent sinus tenderness Respiratory Respiratory exam: Present normal lung sounds bilaterally; Absent respiratory distress or wheezes Cardiovascular Cardiovascular exam: Present regular rate, normal rhythm and normal heart sounds Abdominal Exam Abdominal exam: Present soft and normal bowel sounds; Absent distention or tenderness Neurological Exam Neurological exam: Present alert, oriented X3 and normal gait Medical Decision Making Khanh Inquiry Pt receiving controlled substance: No Khanh was queried for this patient: No Vital Signs: 11/12/23 13:40 Temperature 99.2 F Temperature Source Oral Pulse Rate [Left Brachial] 93 H Respiratory Rate 19 Blood Pressure [Left Arm] 125/86 Blood Pressure Mean [Left Arm] 99 Blood Pressure Source [Left Arm] Automatic Cuff Blood Pressure Position [Left Arm] Sitting 02 Sat by Pulse Oximetry 100 Oxygen Delivery Method Room Air Lab Data Lab results reviewed: Yes I reviewed the patient's lab results. Lab Results 11/12/23 13:53: Influenza Type A Ag Negative, Influenza Type B Ag Negative, Strep Scn Rapid Clinic Negative Orders (Tests/Meds): ORDERS Category Date Time Status Strep Screen Confirmation Stat Micro 11/12/23 13:53 Received
[2023-11-12 15:05] VITALS: BP 125/86; PULSE 93; RESP 19; TEMP 37.3; O2SAT 100
[2023-11-12 15:09] LABS: Adenovirus,PCR Not Detected (NotDetected); Coronavirus 19, PCR Not Detected (NotDetected); Coronavirus 229E Not Detected (NotDetected); Coronavirus NL63 Not Detected (NotDetected); Coronavirus OC43 Not Detected (NotDetected); Coronovirus HKU1,PCR Not Detected (NotDetected); Human Metapneumovirus Not Detected (NotDetected); Influenza A, PCR Not Detected (NotDetected); Influenza AH1, 2009 Not Detected (NotDetected); Influenza AH1, PCR Not Detected (NotDetected); Influenza AH3,PCR Not Detected (NotDetected); Influenza B, PCR Not Detected (NotDetected); Parainfluenza 1, PCR Not Detected (NotDetected); Parainfluenza 2, PCR Not Detected (NotDetected); Parainfluenza 3, PCR Not Detected (NotDetected); Parainfluenza 4, PCR Not Detected (NotDetected); Respiratory Syncytial Virus Not Detected (NotDetected); Rhinovirus/Enterovirus Not Detected (NotDetected)
== END 2023-11-12 15:08 | disposition home or self-care (01) ==
PROVIDERS: Emergency Provider Nurse Practitioner; PCP Nurse Practitioner Family
DX: R05.9 Cough, unspecified (principal); R51.9 Headache, unspecified; R09.81 Nasal congestion; B34.9 Viral infection, unspecified
CPT/HCPCS: 87632; 87635; 87804; 87880; 99212; 99213; 99214; G0463

== ENCOUNTER 2023-12-22 10:42 | Outpatient (CLI) | payer OTHER, SELFPAY ==
[2023-12-22 12:00] LABS: Alanine Aminotransferase 28 U/L (12-78); Albumin Level 3.9 g/dl (3.5-5.0); Albumin/Globulin Ratio 1.8 (1.1-1.8); Alkaline Phosphatase 56 U/L (38-126); Anion Gap 8.8 mEq/L (5-15); Aspartate Amino Transferase 27 U/L (14-36); Bilirubin,Total 0.7 mg/dl (0.2-1.3); Blood Urea Nitrogen 12 mg/dl (7-17); Calcium 8.7 mg/dl (8.4-10.2); Carbon Dioxide 27 mmol/L (22.0-30.0); Chloride 107 mmol/L (98-107); Estimated Glomerular Filt Rate 100 ml/min (>60); GFR (African American) 121 ML/MIN (>60); Globulin 2.2 g/dL (1.3-3.2); Glucose 102 mg/dl (74-100); Potassium 3.8 mmoL/L (3.5-5.1); Sodium 139 mmol/L (136-145); Total Protein,Serum 6.1 g/dl (6.3-8.2)
== END 2023-12-22 23:59 ==
LOC: LAB 10:42
PROVIDERS: PCP Nurse Practitioner Family; Visit Provider Obstetrics & Gynecology
DX: L73.2 Hidradenitis suppurativa (principal)
CPT/HCPCS: 36415; 80053

== ENCOUNTER 2024-02-05 12:10 | Emergency (ER) | payer OTHER, SELFPAY ==
--- NOTE | 2024-02-05 12:34 | ED_ITS ---
Discharge Plan Disposition Patient Disposition: Home, Self-Care Condition: Good Prescriptions Prescriptions: New prednisone 20 mg tablet 20 mg PO BID 5 Days Qty: 10 0RF amoxicillin-pot clavulanate 875-125 mg Tablet 1 tab PO Q12H Qty: 20 0RF No Action ondansetron 4 mg tablet,disintegrating 4 mg PO Q8H PRN (Reason: nausea and vomiting) Qty: 20 0RF spironolactone 50 mg tablet 50 mg PO DAILY Qty: 30 3RF tobramycin 0.3 % drops 1 drp ophthalmic (eye) Q4H 3 Days Qty: 5 0RF Referrals Follow up/Referrals: Stephanie Lazo APRN [Primary Care Provider] - See instructions Clinical Impressions Clinical Impression: Sinusitis, UTI (urinary tract infection) Instructions Patient Instructions: DI for Sinusitis Discharge ED Provider: Vinita Soliman [facility] HPI General Stated complaint: pain in neck, headache, body aches, ear pain Time Seen by Provider: 02/05/24 13:52 History of Present Illness Provider Complaint: Ear pain, headache, nasal congestion, sore throat, body aches, chills, dysuria and frequency Onset (ago): day(s) (2) Relieving factors: none Exacerbating factors: none Associated symptoms: denies other symptoms Treatments prior to arrival: none Related Data Previous Rx's Medication Instructions Recorded ondansetron 4 mg disintegrating 4 mg PO Q8H PRN nausea and 11/16/23 tablet vomiting #20 tabs spironolactone 50 mg tablet 50 mg PO DAILY #30 tabs 12/22/23 tobramycin 0.3 % eye drops 1 drp ophthalmic (eye) Q4H 3 days 01/20/24 #5 mL amoxicillin 875 mg-potassium 1 tab PO Q12H #20 tabs 02/05/24 clavulanate 125 mg tablet prednisone 20 mg tablet 20 mg PO BID 5 days #10 tabs 02/05/24 Allergies Allergy/AdvReac Type Severity Reaction Status Date / Time No Known Allergies Allergy Verified 01/26/24 15:28 [facility] Disclaimer: The information contained in this section may have been updated after the patient was seen, as this information can be updated by other users. 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 History of fracture of foot Sinusitis Vertigo Otitis media Lesion of vulva tubal ligation planned Surgical History S/P ORIF (open reduction internal fixation) fracture right foot History of tubal ligation Previous section Family History Father Thrombosis Mother Diabetes Social History Smoking Status: Never smoker second hand exposure: No alcohol intake: never substance use type: denies use current occupational status: employed Travel in the last 8 weeks: None household members: children housing: apartment 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 current occupational exposures/hazards: No caffeine: Yes ROS Obtained: Yes All systems reviewed & no additional complaints except as documented Constitutional Constitutional: Reports body ache, Reports chills, Reports fatigue, Reports fever(s) and Reports malaise Genitourinary Female Genitourinary: Reports dysuria Endocrine Endocrine: Reports fatigue Physical Exam General General appearance: alert and in no apparent distress ENT ENT exam: Present mucous membranes moist and TM's normal bilaterally Expanded ENT Exam Nose exam: Absent sinus tenderness Throat exam: Present tonsillar erythema Respiratory Respiratory exam: Present normal lung sounds bilaterally; Absent respiratory distress or wheezes Cardiovascular Cardiovascular exam: Present regular rate, normal rhythm and normal heart sounds Abdominal Exam Abdominal exam: Present soft and normal bowel sounds; Absent distention or tenderness Neurological Exam Neurological exam: Present alert, oriented X3 and normal gait Medical Decision Making [place] Inquiry Pt receiving controlled substance: No Lab Data Lab results reviewed: Yes I reviewed the patient's lab results.
[2024-02-05 12:55] VITALS: BP 131/83; PULSE 82; RESP 20; TEMP 36.8; O2SAT 100; BMI 42.8
[2024-02-05 14:04] VITALS: BP 131/83; PULSE 82; RESP 20; TEMP 36.8; O2SAT 100
[2024-02-05 17:59] LABS: Apearance,Urine Clear (Clear); Color,Urine Amber (Yellow)
[2024-02-05 18:00] LABS: Bilirubin,Urine 2+ (Negative); Blood, Urine Trace (Negative); Glucose,Urine (UA) 100 (Negative); Ketones,Urine 15 (Negative); Protein,Urine 2+ (Negative); Specific Gravity, Urine 1.025 (1.005-1.030); UTC Leukocyte Esterase,Urine Trace (Negative); UTC Nitrate,Urine Negative (Negative); Urobilinogen,Urine >=8 EU/dl (0.2)
== END 2024-02-05 14:06 | disposition home or self-care (01) ==
PROVIDERS: Emergency Provider Physician Assistant; PCP Nurse Practitioner Family
DX: N39.0 Urinary tract infection, site not specified (principal); B95.62 Methicillin resistant Staphylococcus aureus infection as the cause of diseases classified elsewhere; B95.1 Streptococcus, group B, as the cause of diseases classified elsewhere; J01.90 Acute sinusitis, unspecified; R50.9 Fever, unspecified; R51.9 Headache, unspecified; H92.03 Otalgia, bilateral; R07.0 Pain in throat; R09.81 Nasal congestion
CPT/HCPCS: 81003; 87086; 99212; 99214; G0463

== ENCOUNTER 2024-03-15 16:51 | Outpatient (CLI) | payer OTHER, SELFPAY ==
[2024-03-15 18:38] LABS: Vitamin B12 < 159 pg/mL (239-931)
[2024-03-15 20:18] LABS: Ferritin 17.2 ng/ml (6.24-137)
[2024-03-17 08:32] LABS: Progesterone 6.3 ng/mL (.); Testosterone,Total 51 ng/dL (13-71)
== END 2024-03-15 23:59 | disposition home or self-care (01) ==
LOC: LAB.DROPOF 16:51
PROVIDERS: PCP Nurse Practitioner Family; Visit Provider Nurse Practitioner Family
DX: R63.5 Abnormal weight gain (principal); L70.9 Acne, unspecified; E53.8 Deficiency of other specified B group vitamins; Z79.899 Other long term (current) drug therapy
CPT/HCPCS: 82607; 82670; 82728; 84144; 84403; 84443

== ENCOUNTER 2024-03-31 15:30 | Outpatient (CLI) | payer OTHER, SELFPAY ==
--- NOTE | 2024-03-31 15:31 | US_ITS ---
PROCEDURE: US TRANSVAGINAL CLINICAL INDICATION: heavy clotting COMPARISON: No exams were available for comparison FINDINGS: Transvaginal sonographic images of the pelvis were obtained. UTERUS: 8.5cm x 5.9 cmx 5.0cm anteverted with a combined endometrial thickness of 5.4mm. A scar is seen. There is a small nabothian cyst within the cervix. LEFT OVARY: 2.2cmx3.1cmx2.8cm with a volume of 10.1ml. Difficult to visualize and located posterior to the uterus. RIGHT OVARY: 3.3cmx 4.7cmx4.1cm with a volume of 32.7ml. There is a follicle in the right ovary measuring 4.1 cm x 2.8 cm x 3.0 cm. Both ovaries are seen and appear normal. Doppler flow to both ovaries are seen. There is a small amount of fluid in the cul-de-sac. IMPRESSION: 1. Anteverted uterus normal in shape and size. The endometrium is thin. 2. Both ovaries are seen and appear normal. 3. There is a 4.1 cm follicle in the right ovary and would suggest a follow-up ultrasound in 3 months. 4. There is a small amount of fluid in the cul-de-sac. Dictated by: Connor Johnson MD 04/01/2024 09:14 Connor Johnson MD in [place] 04/01/2024 09:14
== END 2024-03-31 23:59 | disposition home or self-care (01) ==
LOC: RAD 15:31
PROVIDERS: PCP Nurse Practitioner Family; Visit Provider Nurse Practitioner Family
DX: N92.0 Excessive and frequent menstruation with regular cycle (principal)
CPT/HCPCS: 76830

== ENCOUNTER 2024-06-08 15:54 | Outpatient (CLI) | payer OTHER, SELFPAY ==
[2024-06-08 16:47] LABS: Basophils # 0.1 K/mm3 (0-0.2); Basophils % 0.6 % (0.1-2.0); Eosinophils % 0.4 % (0.1-12.0); Hematocrit 41.5 % (37.0-47.0); Hemoglobin 13.6 g/dL (12.2-16.2); Lymphocytes # 2.5 K/mm3 (0.7-4.5); Lymphocytes % 29.6 % (10-50); Mean Corpuscular HGB Conc 32.7 g/dL (31.8-35.4); Mean Corpuscular Hemoglobin 28.3 pg (27.0-31.2); Mean Corpuscular Volume 86.6 fl (81-99); Mean Platelet Volume 10.2 fl (7.4-10.4); Monocytes # 0.5 K/mm3 (0.1-1.0); Monocytes % 6.5 % (1.7-9.3); Neutrophils # 5.2 K/mm3 (1.8-7.8); Neutrophils % 62.9 % (37.0-80.0); Platelet Count 276 K/mm3 (142-424); Red Cell Distribution Width 14.5 % (11.5-17.5); White Blood Count 8.3 K/mm3 (4.8-10.8)
[2024-06-08 17:03] LABS: Alanine Aminotransferase 44 U/L (12-78); Albumin Level 3.9 g/dl (3.5-5.0); Albumin/Globulin Ratio 1.4 (1.1-1.8); Alkaline Phosphatase 48 U/L (38-126); Anion Gap 8.3 mEq/L (5-15); Aspartate Amino Transferase 39 U/L (14-36); Bilirubin,Total 0.8 mg/dl (0.2-1.3); Blood Urea Nitrogen 12 mg/dl (7-17); Calcium 8.8 mg/dl (8.4-10.2); Carbon Dioxide 26 mmol/L (22.0-30.0); Chloride 108 mmol/L (98-107); Estimated Glomerular Filt Rate 85 ml/min (>60); GFR (African American) 103 ML/MIN (>60); Globulin 2.7 g/dL (1.3-3.2); Glucose 94 mg/dl (74-100); Potassium 4.3 mmoL/L (3.5-5.1); Sodium 138 mmol/L (136-145); Total Protein,Serum 6.6 g/dl (6.3-8.2)
[2024-06-08 17:34] LABS: Thyroid Stimulating Hormone 2.32 uIU/mL (0.465-4.68)
== END 2024-06-08 23:59 | disposition home or self-care (01) ==
LOC: LAB 15:55
PROVIDERS: PCP Nurse Practitioner Family; Visit Provider Obstetrics & Gynecology
DX: N91.2 Amenorrhea, unspecified (principal)
CPT/HCPCS: 36415; 80050; 80053; 84146; 84443; 85025

== ENCOUNTER 2024-07-15 12:58 | Outpatient (CLI) | payer OTHER, SELFPAY ==
--- NOTE | 2024-07-15 13:01 | US_ITS ---
PROCEDURE: US TRANSVAGINAL CLINICAL INDICATION: f/u on Ovarian Cyst COMPARISON: US US TRANSVAGINAL from 03/31/2024 FINDINGS: Transvaginal sonographic images of the pelvis were obtained. UTERUS: 8.2cm x 5.6cmx 4.3cm anteverted with a combined endometrial thickness of 9.1mm. There is a nabothian cyst in the cervix. A Caesarean section scar is seen. LEFT OVARY: 2.8 cmx2.4cmx1.9cm with a volume of 6.7ml. Left ovary was more difficult to see due to position but appears normal. We were not able to see Doppler flow to this ovary today. RIGHT OVARY: 2.7 cmx 2.5 cm x2.3cm with a volume of 8.4ml. There is a follicle in the right ovary measuring 1.7 cm x 1.8 cm x 1.6 cm. The previously described 4 cm follicle has now resolved. Both ovaries are seen and appear normal. Doppler flow to right ovary is seen. Difficult to obtain Doppler flow to left ovary due to position. There is no fluid in the cul-de-sac. IMPRESSION: 1. Anteverted uterus normal in shape and size. The endometrium is normal and measures 9.1 mm. 2. Both ovaries are seen and appear normal. The left ovary is more difficult to see due to position. 3. The previously described 4 cm right ovarian follicle has now resolved. 4. No fluid in the cul-de-sac. Dictated by: Connor Johnson MD 07/16/2024 07:15 Connor Johnson MD in [place] 07/16/2024 07:15
== END 2024-07-15 23:59 | disposition home or self-care (01) ==
LOC: RAD 12:58
PROVIDERS: PCP Nurse Practitioner Family; Visit Provider Obstetrics & Gynecology
DX: N83.209 Unspecified ovarian cyst, unspecified side (principal)
CPT/HCPCS: 76830

== ENCOUNTER 2024-08-10 09:14 | Outpatient (CLI) | payer OTHER, SELFPAY | END 2024-08-10 23:59 | disposition home or self-care (01) | LOC: LAB 09:15 | PROVIDERS: PCP Nurse Practitioner Family; Visit Provider Obstetrics & Gynecology | DX: Z02.9 Encounter for administrative examinations, unspecified (principal) ==

== ENCOUNTER 2024-08-11 10:08 | Outpatient (CLI) | payer OTHER, SELFPAY ==
[2024-08-11 10:30] LABS: Basophils # 0.1 K/mm3 (0-0.2); Basophils % 0.9 % (0.1-2.0); Eosinophils # 0.1 K/mm3 (0.0-0.4); Eosinophils % 1.6 % (0.1-12.0); Hematocrit 41.2 % (37.0-47.0); Hemoglobin 14.6 g/dL (12.2-16.2); Lymphocytes # 1.9 K/mm3 (0.7-4.5); Lymphocytes % 31.6 % (10-50); Mean Corpuscular HGB Conc 35.4 g/dL (31.8-35.4); Mean Corpuscular Hemoglobin 29.2 pg (27.0-31.2); Mean Corpuscular Volume 82.6 fl (81-99); Mean Platelet Volume 9.4 fl (7.4-10.4); Monocytes # 0.4 K/mm3 (0.1-1.0); Monocytes % 6.6 % (1.7-9.3); Neutrophils # 3.5 K/mm3 (1.8-7.8); Neutrophils % 59.3 % (37.0-80.0); Platelet Count 250 K/mm3 (142-424); Red Blood Count 4.98 M/mm3 (4.20-5.40); Red Cell Distribution Width 14.4 % (11.5-17.5); White Blood Count 5.9 K/mm3 (4.8-10.8)
[2024-08-11 10:48] LABS: Alanine Aminotransferase 41 U/L (12-78); Albumin Level 4.1 g/dl (3.5-5.0); Albumin/Globulin Ratio 1.8 (1.1-1.8); Alkaline Phosphatase 42 U/L (38-126); Anion Gap 8.3 mEq/L (5-15); Aspartate Amino Transferase 32 U/L (14-36); Bilirubin,Total 0.8 mg/dl (0.2-1.3); Blood Urea Nitrogen 12 mg/dl (7-17); Calcium 9.1 mg/dl (8.4-10.2); Carbon Dioxide 25 mmol/L (22.0-30.0); Chloride 110 mmol/L (98-107); Estimated Glomerular Filt Rate 100 ml/min (>60); GFR (African American) 121 ML/MIN (>60); Globulin 2.3 g/dL (1.3-3.2); Glucose 90 mg/dl (74-100); Potassium 4.3 mmoL/L (3.5-5.1); Sodium 139 mmol/L (136-145); Total Protein,Serum 6.4 g/dl (6.3-8.2)
[2024-08-11 11:19] LABS: Thyroid Stimulating Hormone 1.68 uIU/mL (0.465-4.68)
[2024-08-12 08:21] LABS: Testosterone,Total 46 ng/dL (13-71)
== END 2024-08-11 23:59 | disposition home or self-care (01) ==
LOC: LAB 10:08
PROVIDERS: PCP Nurse Practitioner Family; Visit Provider Obstetrics & Gynecology
DX: N92.0 Excessive and frequent menstruation with regular cycle (principal)
CPT/HCPCS: 36415; 80050; 80053; 82626; 83498; 84403; 84443; 85025

== ENCOUNTER 2024-08-26 15:17 | Outpatient (CLI) | payer OTHER, SELFPAY ==
[2024-08-27 08:22] LABS: FSH 3.6 mIU/mL (.)
[2024-08-29 01:07] LABS: Anti Mullerian Hormone (AMH) 1.54 ng/mL (.)
== END 2024-08-26 23:59 | disposition home or self-care (01) ==
LOC: LAB 15:18
PROVIDERS: PCP Nurse Practitioner Family; Visit Provider Obstetrics & Gynecology
DX: N91.1 Secondary amenorrhea (principal); Z68.41 Body mass index [BMI] 40.0-44.9, adult
CPT/HCPCS: 36415; 82397; 83001

== ENCOUNTER 2025-01-17 11:04 | Outpatient (CLI) | payer OTHER, SELFPAY ==
[2025-01-17 12:34] LABS: HIV Combo NEGATIVE (Negative)
[2025-01-17 22:05] LABS: RPR W/RFX Titers Nonreactive (Nonreactive)
[2025-01-18 05:12] LABS: HBsAg Screen Negative (Negative); HCV Ab Non Reactive (Non Reactive); Hep A Ab, IGM Negative (Negative); Hep B Core Ab, IgM Negative (Negative)
[2025-01-19 05:20] LABS: Neisseria gonorrhoeae, NAA Negative (Negative)
[2025-01-20 08:14] LABS: HSV-1 DNA Negative (Negative); HSV-2 DNA Negative (Negative)
== END 2025-01-17 23:59 | disposition home or self-care (01) ==
LOC: LAB 11:05
PROVIDERS: PCP Nurse Practitioner Family; Visit Provider Obstetrics & Gynecology
DX: Z11.3 Encounter for screening for infections with a predominantly sexual mode of transmission (principal)
CPT/HCPCS: 36415; 80074; 86592; 86803; 87389; 87491; 87529; 87591

== ENCOUNTER 2025-04-24 16:12 | Outpatient (CLI) | payer OTHER, SELFPAY ==
--- OUTSIDE RECORDS SUMMARY | 2025-04-25 10:17 | XMS_ITS | Clinical Summary ---
Author Organization [facility] Address [address] [place], [place] [id number] Phone [email or web address] Care Team Providers Care Salvager Name Role Phone Unavailable Primary Care Provider Unavailabl e Social History Tobacco Use Types Packs/Day Years Used Date Smoking Tobacco: Never Assessed Intimate Partner Violence Answer Date R ecorded Insults You Not on file 05/06/2022 Threatens You Not on file 05/06/2022 Screams at You Not on file 05/06/2022 Physically Hurt Not on file 05/06/2022 Intimate Partner Violence Score Not on file 05/06/2022 Stress Answer Date Recorded Stress in your Life Not on file 08/26/2024 Dealing with Stress 3 08/26/2024 Comments Unknown Sex and Gender Information Value Date Recorded Sex Assigned at Not on file Legal Sex Female 4:17 PM CDT Gender Identity Not on file Sexual Orientation Not on file Plan of Treatment Not on file
[2025-04-26 20:13] LABS: Neisseria gonorrhoeae, NAA Negative (Negative)
== END 2025-04-24 23:59 | disposition home or self-care (01) ==
LOC: LAB.DROPOF 04-25 10:14
PROVIDERS: PCP Nurse Practitioner Family; Visit Provider Nurse Practitioner Family
DX: Z11.3 Encounter for screening for infections with a predominantly sexual mode of transmission (principal)
CPT/HCPCS: 87491; 87591